=== PATIENT | male | born 1955 | race Two or more races ===

== ENCOUNTER 2016-06-05 23:38 | Inpatient (IN) | payer BC ==
[~2016-06-05] VITALS: Ht 177.8 cm; Wt 127.0 kg
[~2016-06-05 23:38] MED LIST: CARV12.5 PO; FURO40TA5 PO; METF500T4 PO; METH5TAB6 PO; URSO300C12 PO
[2016-06-05] MEDS ORDERED: NITROGLYCERIN 0.4 MG/TAB BOTTLE ONE (23:57)
[2016-06-05] MEDS ORDERED: ASPIRIN 81 MG TAB.CHEW ONE (23:58)
[2016-06-06] MEDS ORDERED: NITROGLYCERIN 0.4 MG/TAB BOTTLE SL ONE
[2016-06-06] MEDS ORDERED: ASPIRIN 81 MG TAB.CHEW PO ONE
[2016-06-06 00:11] LABS: INR 1.13 (0.87-1.13); PROTHROMBIN TIME 11.9 SECS (9.5-12.7)
[2016-06-06 00:21] LABS: ANION GAP 15 (5-14); CALCIUM, SERUM 9.1 mg/dL (8.5-10.1); CARBON DIOXIDE 29 mmol/L (21-32); CHLORIDE 100 mmol/L (98-107); CREATININE 1.1 mg/dL (0.6-1.3); GFR 68 mL/min (>60); GLUCOSE 112 mg/dL (74-106); POTASSIUM 4.4 mmol/L (3.5-5.1); SODIUM SERUM 140 mmol/L (136-145); UREA NITROGEN, BLOOD 17 mg/dL (7-18)
[2016-06-06 00:30] LABS: TROPONIN I < 0.017 ng/mL (0.00-0.056)
[2016-06-06] MEDS ORDERED: HYDROMORPHONE 1 MG/1 ML DISP.SYRIN ONE ×4 (00:39→03:55)
[2016-06-06] MEDS ORDERED: ONDANSETRON HCL/PF 4 MG/2 ML VIAL ONE (00:40)
[2016-06-06 00:41] LABS: BASOPHILS # (AUTO) 0.1 /CMM (0.0-0.2); BASOPHILS % (AUTO) 0.4 % (0.0-2.0); DIFF TOTAL % 100 %; EOSINOPHILS # (AUTO) 0.2 /CMM (0.0-0.7); EOSINOPHILS % (AUTO) 1.6 % (0.0-6.0); HEMATOCRIT 42 % (39-51); HEMOGLOBIN 13.6 g/dL (13.5-17.5); LYMPHOCYTES # (AUTO) 1.9 /CMM (0.8-4.8); LYMPHOCYTES % (AUTO) 14.2 % (20.0-44.0); MEAN CORPUSCULAR HEMOGLOBIN 30 PG (26.0-33.0); MEAN CORPUSCULAR HGB CONC 32 g/dl (31.0-36.0); MEAN CORPUSCULAR VOLUME 94 fL (80-96); MONOCYTES # (AUTO) 1.5 /CMM (0.1-1.30); MONOCYTES % (AUTO) 10.9 % (2.0-12.0); NEUTROPHILS # (AUTO) 9.9 /CMM (1.8-8.9); NEUTROPHILS % (AUTO) 72.9 % (43.0-81.0); PLATELET COUNT (AUTO) 250 /CMM (150-450); RED BLOOD CELL COUNT(AUTO) 4.53 MIL/uL (4.5-6.0); WHITE BLOOD COUNT (AUTO) 13.5 K/uL (4.3-11.0)
[2016-06-06] MEDS ORDERED: ONDANSETRON HCL/PF 4 MG/2 ML VIAL IV ONE (01:00)
[2016-06-06] MEDS ORDERED: HYDROMORPHONE 1 MG/1 ML DISP.SYRIN IV ONE ×4 (01:00→05:30)
[2016-06-06] MEDS ORDERED: CT SWABBABLE VALVE TRANS SET 1 EA INFUS.SET MC ONE (01:16)
[2016-06-06] MEDS ORDERED: IOHEXOL-350 100 ML VIAL IV ONE (01:16)
[2016-06-06] MEDS ORDERED: IV NS 0.9% 250 ML IV ONE (01:16)
[2016-06-06] MEDS ORDERED: SULFAMETH/TRIMETH 800/160 MG 1 UDTAB TABLET PO ONE ×2 (02:49→03:00)
[2016-06-06] MEDS ORDERED: CEFAZOLIN 1 GM ONE (02:49)
[2016-06-06] MEDS ORDERED: IV D5W 50 ML IV ONE (02:49)
[2016-06-06] MEDS ORDERED: IV SET PRIMARY PUMP SET 1 EA INFUS.SET MC ONE ×2 (02:50→05:39)
[2016-06-06] MEDS ORDERED: CEFAZOLIN 1 GM in IV D5W 50 ML IV ONE (03:00)
[2016-06-06] MEDS ORDERED: HYDROMORPHONE INJ 2 MG/ML DISP.SYRIN ONE (03:56)
[2016-06-06] MEDS ORDERED: IV NS 0.9% 1,000 ML IV PRN ×2 (04:15→04:25)
[2016-06-06] MEDS ORDERED: MAGNESIUM HYDROXIDE 30 ML UDC PO PRN (04:30)
[2016-06-06] MEDS ORDERED: HYDROCODONE/APAP 5/325MG 1 EACH TABLET PO PRN (04:30)
[2016-06-06] MEDS ORDERED: ONDANSETRON HCL/PF 4 MG/2 ML VIAL IVP PRN (04:30)
[2016-06-06] MEDS ORDERED: ACETAMINOPHEN 325 MG TABLET PO PRN (04:30)
[2016-06-06] MEDS ORDERED: Z GUARD REMEDY 2 OZ OINT TP PRN (04:30)
[2016-06-06] MEDS ORDERED: MAG HYDROX/AL HYDROX/SIMETH 30 ML UDC PO PRN (04:30)
[2016-06-06] MEDS ORDERED: IV NS 0.9% 1,000 ML ONE (05:38)
[2016-06-06] MEDS: URSODIOL 300 MG CAPSULE PO SCH ×5 (07:00→21:33)
[2016-06-06 07:14] LABS: BASOPHILS # (AUTO) 0.1 /CMM (0.0-0.2); DIFF TOTAL % 100 %; EOSINOPHILS # (AUTO) 0.3 /CMM (0.0-0.7); HEMATOCRIT 41 % (39-51); HEMOGLOBIN 13.5 g/dL (13.5-17.5); LYMPHOCYTES % (AUTO) 14.9 % (20.0-44.0); MEAN CORPUSCULAR HEMOGLOBIN 30 PG (26.0-33.0); MEAN CORPUSCULAR HGB CONC 33 g/dl (31.0-36.0); MEAN CORPUSCULAR VOLUME 91 fL (80-96); MONOCYTES # (AUTO) 1.6 /CMM (0.1-1.30); MONOCYTES % (AUTO) 12.5 % (2.0-12.0); NEUTROPHILS # (AUTO) 9.2 /CMM (1.8-8.9); NEUTROPHILS % (AUTO) 69.6 % (43.0-81.0); PLATELET COUNT (AUTO) 232 /CMM (150-450); RED BLOOD CELL COUNT(AUTO) 4.44 MIL/uL (4.5-6.0); WHITE BLOOD COUNT (AUTO) 13.2 K/uL (4.3-11.0)
[2016-06-06 07:20] LABS: TROPONIN I < 0.017 ng/mL (0.00-0.056)
[2016-06-06 07:47] LABS: ANION GAP 15 (5-14); CALCIUM, SERUM 8.7 mg/dL (8.5-10.1); CARBON DIOXIDE 27 mmol/L (21-32); CHLORIDE 101 mmol/L (98-107); CREATININE 0.9 mg/dL (0.6-1.3); GFR 86 mL/min (>60); GLUCOSE 103 mg/dL (74-106); SODIUM SERUM 138 mmol/L (136-145); UREA NITROGEN, BLOOD 14 mg/dL (7-18)
[2016-06-06 07:48] LABS: ALANINE AMINOTRANSFERASE 14 U/L (12-78); ALBUMIN 2.9 g/dL (3.4-5.0); ASPARTATE AMINOTRANSFERASE 15 U/L (15-37); BILIRUBIN,TOTAL 0.4 mg/dL (0.2-1.0); PHOSPHORUS 3.6 mg/dL (2.5-4.9); TOTAL PROTEIN, SERUM 8.1 g/dL (6.4-8.2)
[2016-06-06 08:00] VITALS: BP 163/88
[2016-06-06 08:02] LABS: CHOLESTEROL 169 mg/dL (<200); HDL CHOLESTEROL 61 mg/dL (40-60); LDL 91 mg/dL (0-99); TRIGLYCERIDES 51 mg/dL (30-150)
[2016-06-06] MEDS: METFORMIN 500 MG TABLET PO SCH ×2 (09:00→17:00)
[2016-06-06 09:21] LABS: THYROID STIMULATING HORMONE 1.995 uIU/mL (0.358-3.74)
[2016-06-06] MEDS ORDERED: HYDROMORPHONE INJ 2 MG/ML DISP.SYRIN IV ONE (09:30)
[2016-06-06] MEDS: METHIMAZOLE (5MG) 5 MG TABLET PO SCH (09:32)
[2016-06-06] MEDS: CARVEDILOL 12.5 MG TABLET PO SCH ×2 (09:32→17:01)
[2016-06-06] MEDS ORDERED: DEXTROSE 50%-WATER 50 ML DISP.SYRIN IV PRN (10:00)
[2016-06-06] MEDS: BLOOD SUGAR DIAGNOSTIC 1 EACH STRIP IN SCH ×4 (10:00→21:33)
[2016-06-06] MEDS: VANCOMYCIN 1.25 GM in IV D5W 500 ML IV SCH ×2 (10:09→21:26)
[2016-06-06] MEDS ORDERED: SECONDARY IV SET 1 EA INFUS.SET MC ONE (10:11)
[2016-06-06] MEDS: PREGABALIN 25 MG CAPSULE PO SCH ×3 (10:11→16:56)
[2016-06-06] MEDS: IV D5/ 0.9% NACL 1,000 ML IV PRN (10:15)
[2016-06-06 10:34] LABS: CALCIUM, SERUM 8.5 mg/dL (8.5-10.1)
[2016-06-06 10:40] LABS: ALBUMIN 2.6 g/dL (3.4-5.0); BILIRUBIN,DIRECT 0.1 mg/dL (0.0-0.2); BILIRUBIN,TOTAL 0.4 mg/dL (0.2-1.0); INDIRECT BILIRUBIN 0.3 mg/dL (0.0-1.1); TOTAL PROTEIN, SERUM 7.7 g/dL (6.4-8.2)
[2016-06-06 10:45] LABS: LACTIC ACID 0.7 mmol/L (0.4-2.0)
[2016-06-06 11:05] LABS: ADD UA MICROSCOPIC YES; KETONES,URINE TRACE (NEGATIVE); LEUKOCYTE ESTERASE ,URINE NEGATIVE (NEGATIVE); PH,URINE 5.5 (5.0-8.0)
[2016-06-06 11:10] LABS: ADD URINE CULTURE NO; MUCUS,URINE Few /LPF (None Seen); RBC,URINE 0-2 /HPF (0-2)
[2016-06-06 12:00] VITALS: BP 95/65
[2016-06-06] MEDS: Folic acid 1 MG in IV D5W 50 ML IV SCH (12:15)
[2016-06-06] MEDS: PIPERACILLIN /TAZOBACTAM 3.375 G in IV D5W 50 ML IV SCH ×2 (12:55→18:58)
[2016-06-06] MEDS: diphenhydrAMINE HCL 25 MG CAPSULE PO PRN (12:55)
[2016-06-06] MEDS: HYDROMORPHONE INJ 2 MG/ML DISP.SYRIN IV PRN ×3 (13:24→21:27)
[2016-06-06] MEDS: Thiamine 100 MG in IV D5W 50 ML IV SCH (14:21)
[2016-06-06] MEDS: Magnesium 1GM/D5W 100ML PREMIX 100 ML IV SCH ×2 (15:20→16:56)
[2016-06-06 16:00] VITALS: BP 120/69
[2016-06-06] MEDS ORDERED: FEE PK DOSING 1 MIN EA MC ONE (16:33)
[2016-06-06 20:00] VITALS: BP 133/63
[2016-06-06 20:12] VITALS: BP 133/63
[2016-06-06] MEDS: INSULIN REGULAR, HUMAN 100 UNIT/ML 3 ML VIAL SQ PRN (21:51)
[2016-06-07] MEDS: PIPERACILLIN /TAZOBACTAM 3.375 G in IV D5W 50 ML IV SCH ×4 (00:21→17:01)
[2016-06-07] MEDS: HYDROMORPHONE INJ 2 MG/ML DISP.SYRIN IV PRN ×6 (01:26→22:21)
[2016-06-07] MEDS: BLOOD SUGAR DIAGNOSTIC 1 EACH STRIP IN SCH ×4 (06:33→22:21)
[2016-06-07] MEDS: URSODIOL 300 MG CAPSULE PO SCH ×5 (06:33→20:32)
[2016-06-07] MEDS: diphenhydrAMINE HCL 25 MG CAPSULE PO PRN ×2 (06:36→18:25)
[2016-06-07] MEDS: IV D5/ 0.9% NACL 1,000 ML IV PRN ×2 (06:40→17:00)
[2016-06-07 06:53] LABS: BASOPHILS # (AUTO) 0.1 /CMM (0.0-0.2); BASOPHILS % (AUTO) 0.4 % (0.0-2.0); DIFF TOTAL % 100 %; EOSINOPHILS # (AUTO) 0.5 /CMM (0.0-0.7); EOSINOPHILS % (AUTO) 3.3 % (0.0-6.0); HEMATOCRIT 39 % (39-51); HEMOGLOBIN 12.5 g/dL (13.5-17.5); LYMPHOCYTES # (AUTO) 0.6 /CMM (0.8-4.8); LYMPHOCYTES % (AUTO) 3.7 % (20.0-44.0); MEAN CORPUSCULAR HEMOGLOBIN 30 PG (26.0-33.0); MEAN CORPUSCULAR HGB CONC 32 g/dl (31.0-36.0); MEAN CORPUSCULAR VOLUME 94 fL (80-96); MONOCYTES # (AUTO) 0.9 /CMM (0.1-1.30); MONOCYTES % (AUTO) 5.9 % (2.0-12.0); NEUTROPHILS # (AUTO) 13.7 /CMM (1.8-8.9); NEUTROPHILS % (AUTO) 86.7 % (43.0-81.0); PLATELET COUNT (AUTO) 222 /CMM (150-450); RED BLOOD CELL COUNT(AUTO) 4.12 MIL/uL (4.5-6.0); WHITE BLOOD COUNT (AUTO) 15.8 K/uL (4.3-11.0)
[2016-06-07 07:16] LABS: CALCIUM, SERUM 8.5 mg/dL (8.5-10.1); CREATININE 1.4 mg/dL (0.6-1.3); PHOSPHORUS 4.2 mg/dL (2.5-4.9); POTASSIUM 4.4 mmol/L (3.5-5.1)
[2016-06-07 08:00] VITALS: BP 119/65
[2016-06-07] MEDS: METFORMIN 500 MG TABLET PO SCH ×3 (08:20→17:00)
[2016-06-07] MEDS: METHIMAZOLE (5MG) 5 MG TABLET PO SCH (08:23)
[2016-06-07] MEDS: VANCOMYCIN 1.25 GM in IV D5W 500 ML IV SCH (08:23)
[2016-06-07] MEDS: CARVEDILOL 12.5 MG TABLET PO SCH ×3 (08:23→17:29)
[2016-06-07] MEDS: PREGABALIN 25 MG CAPSULE PO SCH ×4 (08:23→17:29)
[2016-06-07 08:35] VITALS: BP 119/65
[2016-06-07] MEDS: Folic acid 1 MG in IV D5W 50 ML IV SCH (10:32)
[2016-06-07] MEDS ORDERED: SECONDARY IV SET 1 EA INFUS.SET MC ONE (10:46)
[2016-06-07 11:33] LABS: KETONES,URINE NEGATIVE (NEGATIVE); LEUKOCYTE ESTERASE ,URINE NEGATIVE (NEGATIVE); PH,URINE 5.5 (5.0-8.0)
[2016-06-07 11:35] LABS: ADD UA MICROSCOPIC YES
[2016-06-07 11:41] LABS: ADD URINE CULTURE NO; COARSE GRANULAR CASTS,URINE Few /LPF (None Seen); MUCUS,URINE Few /LPF (None Seen); WBC,URINE 0-2 /HPF (0-3)
[2016-06-07] MEDS: Thiamine 100 MG in IV D5W 50 ML IV SCH (11:53)
[2016-06-07] MEDS ORDERED: LIDOCAINE 1% INJ 50 ML MDV IJ ONE (12:30)
[2016-06-07 16:00] VITALS: BP_SYST 111; BP_SYST 117; BP_DIAS 56
[2016-06-07 20:00] VITALS: BP_SYST 92; BP_DIAS 57; BP_DIAS 60
[2016-06-07] MEDS: INSULIN REGULAR, HUMAN 100 UNIT/ML 3 ML VIAL SQ PRN (22:22)
[2016-06-08] MEDS: VANCOMYCIN 1.25 GM in IV D5W 500 ML IV SCH ×2 (02:05→21:11)
[2016-06-08] MEDS ORDERED: SECONDARY IV SET 1 EA INFUS.SET MC ONE ×2 (02:07→10:17)
[2016-06-08] MEDS: HYDROMORPHONE INJ 2 MG/ML DISP.SYRIN IV PRN ×4 (02:39→14:45)
[2016-06-08] MEDS: BLOOD SUGAR DIAGNOSTIC 1 EACH STRIP IN SCH ×4 (05:16→21:24)
[2016-06-08] MEDS: INSULIN REGULAR, HUMAN 100 UNIT/ML 3 ML VIAL SQ PRN (05:17)
[2016-06-08] MEDS: PIPERACILLIN /TAZOBACTAM 3.375 G in IV D5W 50 ML IV SCH ×5 (05:18→17:41)
[2016-06-08 06:38] LABS: BASOPHILS # (AUTO) 0.1 /CMM (0.0-0.2); BASOPHILS % (AUTO) 0.8 % (0.0-2.0); DIFF TOTAL % 100 %; EOSINOPHILS % (AUTO) 7.9 % (0.0-6.0); HEMATOCRIT 39 % (39-51); HEMOGLOBIN 12.5 g/dL (13.5-17.5); LYMPHOCYTES # (AUTO) 0.7 /CMM (0.8-4.8); LYMPHOCYTES % (AUTO) 5.6 % (20.0-44.0); MEAN CORPUSCULAR HEMOGLOBIN 30 PG (26.0-33.0); MEAN CORPUSCULAR HGB CONC 32 g/dl (31.0-36.0); MEAN CORPUSCULAR VOLUME 94 fL (80-96); MONOCYTES # (AUTO) 0.8 /CMM (0.1-1.30); MONOCYTES % (AUTO) 6.9 % (2.0-12.0); NEUTROPHILS # (AUTO) 9.6 /CMM (1.8-8.9); NEUTROPHILS % (AUTO) 78.8 % (43.0-81.0); PLATELET COUNT (AUTO) 231 /CMM (150-450); RED BLOOD CELL COUNT(AUTO) 4.15 MIL/uL (4.5-6.0); WHITE BLOOD COUNT (AUTO) 12.2 K/uL (4.3-11.0)
[2016-06-08] MEDS: URSODIOL 300 MG CAPSULE PO SCH ×5 (07:00→21:11)
[2016-06-08 07:09] LABS: CALCIUM, SERUM 8.7 mg/dL (8.5-10.1); CREATININE 1.5 mg/dL (0.6-1.3); PHOSPHORUS 2.9 mg/dL (2.5-4.9); POTASSIUM 4.2 mmol/L (3.5-5.1)
[2016-06-08 08:00] VITALS: BP 113/73
[2016-06-08] MEDS: ALBUTEROL FS 2.5 MG/0.5 ML VIAL.NEB NEB PRN (08:12)
[2016-06-08] MEDS: IPRATROPIUM NEB FS 0.5 MG/2.5 ML AMPUL.NEB NEB PRN (08:12)
[2016-06-08] MEDS: CARVEDILOL 12.5 MG TABLET PO SCH ×3 (08:36→17:40)
[2016-06-08] MEDS: METHIMAZOLE (5MG) 5 MG TABLET PO SCH (08:37)
[2016-06-08] MEDS: PREGABALIN 25 MG CAPSULE PO SCH ×4 (08:37→17:40)
[2016-06-08] MEDS: METFORMIN 500 MG TABLET PO SCH (08:37)
[2016-06-08] MEDS: Folic acid 1 MG in IV D5W 50 ML IV SCH (10:15)
[2016-06-08] MEDS: Thiamine 100 MG in IV D5W 50 ML IV SCH (10:46)
[2016-06-08] MEDS ORDERED: NEOMY SULF/BACITRAC ZN/POLY 15 GM TUBE TP PRN (14:30)
[2016-06-08] MEDS ORDERED: diphenhydrAMINE HCL 50 MG/ML VIAL IV ONE (14:30)
[2016-06-08] MEDS ORDERED: FENTANYL PF 100MCG/2ML AMPUL ONE (15:53)
[2016-06-08] MEDS ORDERED: MIDAZOLAM HCL 2 MG/2ML VIAL ONE (15:53)
[2016-06-08 16:00] VITALS: BP 100/60
[2016-06-08] MEDS ORDERED: BACITRACIN 50000 UNITS/VIAL ONE (16:04)
[2016-06-08 17:20] VITALS: BP 99/59
[2016-06-08 18:00] VITALS: BP 100/60
[2016-06-08 20:00] VITALS: BP 83/41
[2016-06-08 20:13] VITALS: BP 83/46
[2016-06-08] MEDS ORDERED: IV NS 0.9% 1,000 ML ONE (21:10)
[2016-06-08] MEDS: INSULIN DETEMIR 100 UNIT/ML CARTRIDGE SQ SCH (21:25)
[2016-06-08] MEDS ORDERED: IV NS 0.9% 500 ML BAG IV ONE (22:30)
[2016-06-09] VITALS: BP 108/64
[2016-06-09] MEDS: PIPERACILLIN /TAZOBACTAM 3.375 G in IV D5W 50 ML IV SCH ×5 (00:23→23:42)
[2016-06-09] MEDS: HYDROMORPHONE INJ 2 MG/ML DISP.SYRIN IV PRN ×3 (01:11→10:14)
[2016-06-09 05:45] VITALS: BP 118/72
[2016-06-09] MEDS: URSODIOL 300 MG CAPSULE PO SCH ×5 (06:05→21:33)
[2016-06-09] MEDS: BLOOD SUGAR DIAGNOSTIC 1 EACH STRIP IN SCH ×4 (06:41→21:46)
[2016-06-09 07:49] LABS: CALCIUM, SERUM 8.4 mg/dL (8.5-10.1); POTASSIUM 4.6 mmol/L (3.5-5.1)
[2016-06-09 08:00] VITALS: BP 109/61
[2016-06-09] MEDS: METHIMAZOLE (5MG) 5 MG TABLET PO SCH (08:41)
[2016-06-09] MEDS: PREGABALIN 25 MG CAPSULE PO SCH ×3 (08:41→16:42)
[2016-06-09] MEDS: CARVEDILOL 12.5 MG TABLET PO SCH ×2 (08:42→16:42)
[2016-06-09] MEDS: THIAMINE HCL 100 MG TABLET PO SCH (09:15)
[2016-06-09] MEDS: FOLIC ACID 1 MG TABLET PO SCH (09:16)
[2016-06-09] MEDS ORDERED: IV NS 0.9% 1,000 ML BAG IV PRN (12:00)
[2016-06-09] MEDS: IPRATROPIUM NEB FS 0.5 MG/2.5 ML AMPUL.NEB NEB PRN (12:22)
[2016-06-09] MEDS: ALBUTEROL FS 2.5 MG/0.5 ML VIAL.NEB NEB PRN (12:22)
[2016-06-09] MEDS ORDERED: IV SET PRIMARY PUMP SET 1 EA INFUS.SET MC ONE (14:17)
[2016-06-09 16:00] VITALS: BP 96/59
[2016-06-09] MEDS ORDERED: HYDROCODONE/APAP 5/325MG 1 EACH TABLET PO PRN (16:00)
[2016-06-09] MEDS ORDERED: HYDROCODONE/APAP 10/325MG 1 EA TABLET PO PRN (16:00)
[2016-06-09] MEDS: LACTOBACILLUS RHAMNOSUS GG 1 EACH CAP.SPRINK PO SCH (16:42)
[2016-06-09] MEDS: TAMSULOSIN 0.4 MG CAP.SR.24H PO SCH (16:42)
[2016-06-09] MEDS ORDERED: SECONDARY IV SET 1 EA INFUS.SET MC ONE ×2 (17:13→20:50)
[2016-06-09] MEDS: IV NS 0.9% 1,000 ML IV PRN (18:48)
[2016-06-09 20:00] VITALS: BP 107/60
[2016-06-09] MEDS: VANCOMYCIN 1.25 GM in IV D5W 500 ML IV SCH (20:53)
[2016-06-09] MEDS: INSULIN REGULAR, HUMAN 100 UNIT/ML 3 ML VIAL SQ PRN (21:53)
[2016-06-09] MEDS: INSULIN DETEMIR 100 UNIT/ML CARTRIDGE SQ SCH (22:00)
[2016-06-10] MEDS: PIPERACILLIN /TAZOBACTAM 3.375 G in IV D5W 50 ML IV SCH ×2 (06:10→12:04)
[2016-06-10] MEDS: BLOOD SUGAR DIAGNOSTIC 1 EACH STRIP IN SCH ×4 (06:18→22:02)
[2016-06-10] MEDS: URSODIOL 300 MG CAPSULE PO SCH ×5 (07:00→21:00)
[2016-06-10 07:50] LABS: CALCIUM, SERUM 8.5 mg/dL (8.5-10.1); POTASSIUM 4.2 mmol/L (3.5-5.1)
[2016-06-10 08:00] VITALS: BP 151/86
[2016-06-10] MEDS: CARVEDILOL 12.5 MG TABLET PO SCH ×2 (08:07→17:00)
[2016-06-10] MEDS: FOLIC ACID 1 MG TABLET PO SCH (08:13)
[2016-06-10] MEDS: PREGABALIN 25 MG CAPSULE PO SCH ×3 (08:13→17:00)
[2016-06-10] MEDS: LACTOBACILLUS RHAMNOSUS GG 1 EACH CAP.SPRINK PO SCH ×2 (08:13→17:00)
[2016-06-10] MEDS: THIAMINE HCL 100 MG TABLET PO SCH (08:13)
[2016-06-10] MEDS: METHIMAZOLE (5MG) 5 MG TABLET PO SCH (08:13)
[2016-06-10] MEDS: TAMSULOSIN 0.4 MG CAP.SR.24H PO SCH (08:13)
[2016-06-10] MEDS: IV NS 0.9% 1,000 ML IV PRN (08:20)
[2016-06-10] MEDS ORDERED: CEFTRIAXONE 1 G in IV D5W 50 ML IV SCH (13:00)
[2016-06-10] MEDS: CEFTRIAXONE 2 G in IV D5W 100 ML IV SCH (14:59)
[2016-06-10 16:00] VITALS: BP 119/77
[2016-06-10] MEDS: IPRATROPIUM NEB FS 0.5 MG/2.5 ML AMPUL.NEB NEB PRN (19:12)
[2016-06-10 20:00] VITALS: BP 141/72
[2016-06-10 21:07] LABS: BASOPHILS # (AUTO) 0.1 /CMM (0.0-0.2); BASOPHILS % (AUTO) 1.1 % (0.0-2.0); DIFF TOTAL % 100 %; EOSINOPHILS # (AUTO) 0.7 /CMM (0.0-0.7); EOSINOPHILS % (AUTO) 7.6 % (0.0-6.0); HEMATOCRIT 33 % (39-51); HEMOGLOBIN 10.5 g/dL (13.5-17.5); LYMPHOCYTES # (AUTO) 1.1 /CMM (0.8-4.8); LYMPHOCYTES % (AUTO) 11.7 % (20.0-44.0); MEAN CORPUSCULAR HEMOGLOBIN 30 PG (26.0-33.0); MEAN CORPUSCULAR HGB CONC 32 g/dl (31.0-36.0); MEAN CORPUSCULAR VOLUME 94 fL (80-96); MONOCYTES # (AUTO) 1.1 /CMM (0.1-1.30); MONOCYTES % (AUTO) 11.3 % (2.0-12.0); NEUTROPHILS # (AUTO) 6.4 /CMM (1.8-8.9); NEUTROPHILS % (AUTO) 68.3 % (43.0-81.0); PLATELET COUNT (AUTO) 262 /CMM (150-450); RED BLOOD CELL COUNT(AUTO) 3.53 MIL/uL (4.5-6.0); WHITE BLOOD COUNT (AUTO) 9.4 K/uL (4.3-11.0)
[2016-06-10] MEDS ORDERED: FUROSEMIDE 40 MG/4 ML VIAL IV ONE (21:30)
[2016-06-10] MEDS ORDERED: FUROSEMIDE 40 MG/4 ML VIAL ONE (21:44)
[2016-06-10 22:05] LABS: ABG BASE EXCESS -0.9 mmol/L; ABG HCO3 25.9 mmol/L; ABG PCO2 52.3 mmHg (35.0-45.0); ABG PH 7.312 (7.350-7.450); ABG PO2 69.5 mmHg (75.0-100.0); ABG TOTAL HEMOGLOBIN 11.9 G/dL (13.5-18.0); ALLEN TEST Pass; O2Hb 92.4 % (94.0-97.0)
[2016-06-10] MEDS: VANCOMYCIN 1.25 GM in IV D5W 500 ML IV SCH (22:16)
[2016-06-11] MEDS: BLOOD SUGAR DIAGNOSTIC 1 EACH STRIP IN SCH ×4 (06:34→22:28)
[2016-06-11] MEDS: IV NS 0.9% 1,000 ML IV PRN (06:46)
[2016-06-11] MEDS: URSODIOL 300 MG CAPSULE PO SCH ×5 (07:00→21:00)
[2016-06-11 07:04] LABS: BASOPHILS # (AUTO) 0.1 /CMM (0.0-0.2); BASOPHILS % (AUTO) 0.8 % (0.0-2.0); DIFF TOTAL % 100 %; EOSINOPHILS # (AUTO) 0.7 /CMM (0.0-0.7); EOSINOPHILS % (AUTO) 7.5 % (0.0-6.0); HEMATOCRIT 37 % (39-51); HEMOGLOBIN 11.8 g/dL (13.5-17.5); LYMPHOCYTES # (AUTO) 0.9 /CMM (0.8-4.8); LYMPHOCYTES % (AUTO) 9.2 % (20.0-44.0); MEAN CORPUSCULAR HEMOGLOBIN 30 PG (26.0-33.0); MEAN CORPUSCULAR HGB CONC 32 g/dl (31.0-36.0); MEAN CORPUSCULAR VOLUME 93 fL (80-96); MONOCYTES # (AUTO) 0.9 /CMM (0.1-1.30); MONOCYTES % (AUTO) 9.4 % (2.0-12.0); NEUTROPHILS # (AUTO) 7.3 /CMM (1.8-8.9); NEUTROPHILS % (AUTO) 73.1 % (43.0-81.0); PLATELET COUNT (AUTO) 289 /CMM (150-450); RED BLOOD CELL COUNT(AUTO) 3.98 MIL/uL (4.5-6.0); WHITE BLOOD COUNT (AUTO) 9.9 K/uL (4.3-11.0)
[2016-06-11 07:35] LABS: BILIRUBIN,TOTAL 0.3 mg/dL (0.2-1.0); CALCIUM, SERUM 8.8 mg/dL (8.5-10.1); CREATININE 1.7 mg/dL (0.6-1.3); PHOSPHORUS 3.2 mg/dL (2.5-4.9); TOTAL PROTEIN, SERUM 7.4 g/dL (6.4-8.2)
[2016-06-11 08:00] VITALS: BP 130/69
[2016-06-11] MEDS: PREGABALIN 25 MG CAPSULE PO SCH ×3 (09:00→17:00)
[2016-06-11] MEDS: LACTOBACILLUS RHAMNOSUS GG 1 EACH CAP.SPRINK PO SCH ×2 (09:18→17:09)
[2016-06-11] MEDS: TAMSULOSIN 0.4 MG CAP.SR.24H PO SCH (09:21)
[2016-06-11] MEDS: CARVEDILOL 12.5 MG TABLET PO SCH ×2 (09:22→17:09)
[2016-06-11] MEDS: FOLIC ACID 1 MG TABLET PO SCH (09:22)
[2016-06-11] MEDS: THIAMINE HCL 100 MG TABLET PO SCH (09:22)
[2016-06-11] MEDS: METHIMAZOLE (5MG) 5 MG TABLET PO SCH (09:22)
[2016-06-11] MEDS: INSULIN REGULAR, HUMAN 100 UNIT/ML 3 ML VIAL SQ PRN ×3 (12:00→22:28)
[2016-06-11] MEDS: CEFTRIAXONE 2 G in IV D5W 100 ML IV SCH (14:26)
[2016-06-11 16:00] VITALS: BP_SYST 110; BP_SYST 141; BP_DIAS 63; BP_DIAS 77
[2016-06-11] MEDS: FUROSEMIDE 20 MG/2 ML VIAL IV SCH (18:43)
[2016-06-11 20:00] VITALS: BP 145/77
[2016-06-11] MEDS: VANCOMYCIN 1.25 GM in IV D5W 500 ML IV SCH (21:01)
[2016-06-11 21:38] LABS: KETONES,URINE NEGATIVE (NEGATIVE); LEUKOCYTE ESTERASE ,URINE NEGATIVE (NEGATIVE); PH,URINE 5.5 (5.0-8.0)
[2016-06-11 21:45] LABS: CREATININE, URINE 120.6 MG/DL (30.0-125.0); URINE TOTAL PROTEIN 89.7 mg/dL (0-11.9)
[2016-06-11 21:47] LABS: ADD UA MICROSCOPIC YES
[2016-06-11 21:54] LABS: ADD URINE CULTURE NO; WBC,URINE 0-2 /HPF (0-3)
[2016-06-11] MEDS: INSULIN DETEMIR 100 UNIT/ML CARTRIDGE SQ SCH (22:00)
[2016-06-12] MEDS: HYDROMORPHONE INJ 2 MG/ML DISP.SYRIN IV PRN ×4 (04:15→20:49)
[2016-06-12] MEDS: BLOOD SUGAR DIAGNOSTIC 1 EACH STRIP IN SCH ×4 (06:43→22:00)
[2016-06-12] MEDS: URSODIOL 300 MG CAPSULE PO SCH ×5 (06:44→21:00)
[2016-06-12 07:28] LABS: CALCIUM, SERUM 8.8 mg/dL (8.5-10.1); CREATININE 1.4 mg/dL (0.6-1.3); POTASSIUM 3.9 mmol/L (3.5-5.1)
[2016-06-12 08:00] VITALS: BP 139/78
[2016-06-12] MEDS: PREGABALIN 25 MG CAPSULE PO SCH ×3 (09:00→17:00)
[2016-06-12] MEDS: LACTOBACILLUS RHAMNOSUS GG 1 EACH CAP.SPRINK PO SCH ×2 (09:10→17:03)
[2016-06-12] MEDS: METHIMAZOLE (5MG) 5 MG TABLET PO SCH (09:11)
[2016-06-12] MEDS: CARVEDILOL 12.5 MG TABLET PO SCH ×2 (09:11→17:04)
[2016-06-12] MEDS: TAMSULOSIN 0.4 MG CAP.SR.24H PO SCH (09:11)
[2016-06-12] MEDS: FOLIC ACID 1 MG TABLET PO SCH (09:11)
[2016-06-12] MEDS: FUROSEMIDE 20 MG/2 ML VIAL IV SCH (09:12)
[2016-06-12] MEDS: THIAMINE HCL 100 MG TABLET PO SCH (09:32)
[2016-06-12 11:49] LABS: PTH, INTACT 20 pg/mL (15-65)
[2016-06-12] MEDS: INSULIN REGULAR, HUMAN 100 UNIT/ML 3 ML VIAL SQ PRN ×2 (11:58→17:04)
[2016-06-12] MEDS: CEFTRIAXONE 2 G in IV D5W 100 ML IV SCH (14:31)
[2016-06-12 16:00] VITALS: BP 144/76
[2016-06-12 20:00] VITALS: BP 125/68
[2016-06-12] MEDS: VANCOMYCIN 1.25 GM in IV D5W 500 ML IV SCH (21:00)
[2016-06-13] MEDS: diphenhydrAMINE HCL 25 MG CAPSULE PO PRN ×3 (02:36→18:32)
[2016-06-13] MEDS: HYDROMORPHONE INJ 2 MG/ML DISP.SYRIN IV PRN ×4 (02:54→18:35)
[2016-06-13] MEDS: INSULIN DETEMIR 100 UNIT/ML CARTRIDGE SQ SCH ×2 (03:10→21:16)
[2016-06-13] MEDS: URSODIOL 300 MG CAPSULE PO SCH ×6 (07:00→21:08)
[2016-06-13 07:37] LABS: BASOPHILS # (AUTO) 0.1 /CMM (0.0-0.2); BASOPHILS % (AUTO) 1.1 % (0.0-2.0); DIFF TOTAL % 100 %; EOSINOPHILS % (AUTO) 8.6 % (0.0-6.0); HEMATOCRIT 35 % (39-51); HEMOGLOBIN 11.4 g/dL (13.5-17.5); LYMPHOCYTES # (AUTO) 2.2 /CMM (0.8-4.8); LYMPHOCYTES % (AUTO) 20.1 % (20.0-44.0); MEAN CORPUSCULAR HEMOGLOBIN 30 PG (26.0-33.0); MEAN CORPUSCULAR HGB CONC 32 g/dl (31.0-36.0); MEAN CORPUSCULAR VOLUME 92 fL (80-96); MONOCYTES # (AUTO) 1.3 /CMM (0.1-1.30); MONOCYTES % (AUTO) 11.6 % (2.0-12.0); NEUTROPHILS # (AUTO) 6.5 /CMM (1.8-8.9); NEUTROPHILS % (AUTO) 58.6 % (43.0-81.0); PLATELET COUNT (AUTO) 333 /CMM (150-450); RED BLOOD CELL COUNT(AUTO) 3.83 MIL/uL (4.5-6.0); WHITE BLOOD COUNT (AUTO) 11.1 K/uL (4.3-11.0)
[2016-06-13 08:00] VITALS: BP 156/82
[2016-06-13 08:11] LABS: CALCIUM, SERUM 8.8 mg/dL (8.5-10.1); CREATININE 1.4 mg/dL (0.6-1.3); PHOSPHORUS 4.4 mg/dL (2.5-4.9); POTASSIUM 3.9 mmol/L (3.5-5.1)
[2016-06-13] MEDS: BLOOD SUGAR DIAGNOSTIC 1 EACH STRIP IN SCH ×4 (09:49→21:09)
[2016-06-13] MEDS: FOLIC ACID 1 MG TABLET PO SCH (09:49)
[2016-06-13] MEDS: PREGABALIN 25 MG CAPSULE PO SCH ×3 (09:49→17:11)
[2016-06-13] MEDS: THIAMINE HCL 100 MG TABLET PO SCH (09:49)
[2016-06-13] MEDS: METHIMAZOLE (5MG) 5 MG TABLET PO SCH (09:49)
[2016-06-13] MEDS: LACTOBACILLUS RHAMNOSUS GG 1 EACH CAP.SPRINK PO SCH ×2 (09:49→17:11)
[2016-06-13] MEDS: TAMSULOSIN 0.4 MG CAP.SR.24H PO SCH (09:49)
[2016-06-13] MEDS: FUROSEMIDE 20 MG/2 ML VIAL IV SCH (09:49)
[2016-06-13] MEDS: CARVEDILOL 12.5 MG TABLET PO SCH ×2 (09:50→17:12)
[2016-06-13] MEDS ORDERED: SECONDARY IV SET 1 EA INFUS.SET MC ONE (12:13)
[2016-06-13] MEDS: Magnesium 1GM/D5W 100ML PREMIX 100 ML IV SCH ×2 (12:19→13:22)
[2016-06-13] MEDS: COLCHICINE 0.6 MG TABLET PO SCH (12:19)
[2016-06-13] MEDS: CEFTRIAXONE 2 G in IV D5W 100 ML IV SCH (14:50)
[2016-06-13 16:00] VITALS: BP 141/80
[2016-06-13 20:00] VITALS: BP 112/58
[2016-06-13 20:18] VITALS: BP 112/58
[2016-06-13] MEDS: VANCOMYCIN 1 GM in IV D5W 250 ML IV SCH (21:08)
[2016-06-13] MEDS: INSULIN REGULAR, HUMAN 100 UNIT/ML 3 ML VIAL SQ PRN (21:14)
[2016-06-14] MEDS ORDERED: HYDROMORPHONE 1 MG/1 ML DISP.SYRIN ONE ×2 (00:01→04:53)
[2016-06-14] MEDS: HYDROMORPHONE 1 MG/1 ML DISP.SYRIN IV PRN ×5 (00:06→20:55)
[2016-06-14] MEDS: diphenhydrAMINE HCL 25 MG CAPSULE PO PRN (05:36)
[2016-06-14] MEDS: BLOOD SUGAR DIAGNOSTIC 1 EACH STRIP IN SCH ×4 (06:32→21:53)
[2016-06-14] MEDS: INSULIN REGULAR, HUMAN 100 UNIT/ML 3 ML VIAL SQ PRN (06:34)
[2016-06-14 08:00] VITALS: BP 145/75
[2016-06-14 08:36] LABS: BASOPHILS # (AUTO) 0.1 /CMM (0.0-0.2); BASOPHILS % (AUTO) 0.7 % (0.0-2.0); DIFF TOTAL % 100 %; EOSINOPHILS # (AUTO) 0.5 /CMM (0.0-0.7); EOSINOPHILS % (AUTO) 4.4 % (0.0-6.0); HEMATOCRIT 37 % (39-51); HEMOGLOBIN 11.8 g/dL (13.5-17.5); LYMPHOCYTES # (AUTO) 1.4 /CMM (0.8-4.8); LYMPHOCYTES % (AUTO) 12.3 % (20.0-44.0); MEAN CORPUSCULAR HEMOGLOBIN 30 PG (26.0-33.0); MEAN CORPUSCULAR HGB CONC 32 g/dl (31.0-36.0); MEAN CORPUSCULAR VOLUME 93 fL (80-96); MONOCYTES # (AUTO) 0.6 /CMM (0.1-1.30); MONOCYTES % (AUTO) 5.3 % (2.0-12.0); NEUTROPHILS # (AUTO) 8.7 /CMM (1.8-8.9); NEUTROPHILS % (AUTO) 77.3 % (43.0-81.0); PLATELET COUNT (AUTO) 316 /CMM (150-450); RED BLOOD CELL COUNT(AUTO) 3.93 MIL/uL (4.5-6.0); WHITE BLOOD COUNT (AUTO) 11.2 K/uL (4.3-11.0)
[2016-06-14 08:44] LABS: CALCIUM, SERUM 8.9 mg/dL (8.5-10.1); CREATININE 1.4 mg/dL (0.6-1.3); PHOSPHORUS 4.4 mg/dL (2.5-4.9); POTASSIUM 4.5 mmol/L (3.5-5.1)
[2016-06-14] MEDS: COLCHICINE 0.6 MG TABLET PO SCH (08:56)
[2016-06-14] MEDS: TAMSULOSIN 0.4 MG CAP.SR.24H PO SCH (08:56)
[2016-06-14] MEDS: METHIMAZOLE (5MG) 5 MG TABLET PO SCH (08:56)
[2016-06-14] MEDS: PREGABALIN 25 MG CAPSULE PO SCH ×3 (08:56→16:38)
[2016-06-14] MEDS: LACTOBACILLUS RHAMNOSUS GG 1 EACH CAP.SPRINK PO SCH ×2 (08:56→16:38)
[2016-06-14] MEDS: FOLIC ACID 1 MG TABLET PO SCH (08:56)
[2016-06-14] MEDS: FUROSEMIDE 20 MG/2 ML VIAL IV SCH (08:56)
[2016-06-14] MEDS: THIAMINE HCL 100 MG TABLET PO SCH (08:56)
[2016-06-14] MEDS: URSODIOL 300 MG CAPSULE PO SCH ×5 (08:56→21:53)
[2016-06-14] MEDS: CARVEDILOL 12.5 MG TABLET PO SCH ×2 (08:58→16:38)
[2016-06-14] MEDS: CEFTRIAXONE 2 G in IV D5W 100 ML IV SCH (14:21)
[2016-06-14 16:00] VITALS: BP 154/88
[2016-06-14 18:00] VITALS: BP 154/88
[2016-06-14 20:00] VITALS: BP 121/67
[2016-06-14] MEDS: VANCOMYCIN 1 GM in IV D5W 250 ML IV SCH (21:53)
[2016-06-14] MEDS: INSULIN DETEMIR 100 UNIT/ML CARTRIDGE SQ SCH (22:00)
[2016-06-15] MEDS: HYDROMORPHONE 1 MG/1 ML DISP.SYRIN IV PRN ×3 (03:25→15:00)
[2016-06-15] MEDS: URSODIOL 300 MG CAPSULE PO SCH ×4 (06:14→17:33)
[2016-06-15] MEDS: BLOOD SUGAR DIAGNOSTIC 1 EACH STRIP IN SCH ×3 (07:30→17:38)
[2016-06-15 08:00] VITALS: BP 133/74
[2016-06-15 08:01] LABS: BASOPHILS # (AUTO) 0.1 /CMM (0.0-0.2); BASOPHILS % (AUTO) 0.8 % (0.0-2.0); DIFF TOTAL % 100 %; EOSINOPHILS # (AUTO) 0.5 /CMM (0.0-0.7); EOSINOPHILS % (AUTO) 5.2 % (0.0-6.0); HEMATOCRIT 37 % (39-51); HEMOGLOBIN 11.9 g/dL (13.5-17.5); LYMPHOCYTES # (AUTO) 1.5 /CMM (0.8-4.8); LYMPHOCYTES % (AUTO) 17.2 % (20.0-44.0); MEAN CORPUSCULAR HEMOGLOBIN 30 PG (26.0-33.0); MEAN CORPUSCULAR HGB CONC 32 g/dl (31.0-36.0); MEAN CORPUSCULAR VOLUME 93 fL (80-96); MONOCYTES # (AUTO) 0.5 /CMM (0.1-1.30); MONOCYTES % (AUTO) 5.4 % (2.0-12.0); NEUTROPHILS # (AUTO) 6.3 /CMM (1.8-8.9); NEUTROPHILS % (AUTO) 71.4 % (43.0-81.0); PLATELET COUNT (AUTO) 350 /CMM (150-450); RED BLOOD CELL COUNT(AUTO) 3.96 MIL/uL (4.5-6.0); WHITE BLOOD COUNT (AUTO) 8.9 K/uL (4.3-11.0)
[2016-06-15 08:20] LABS: CALCIUM, SERUM 8.8 mg/dL (8.5-10.1); CREATININE 1.4 mg/dL (0.6-1.3); POTASSIUM 4.5 mmol/L (3.5-5.1)
[2016-06-15] MEDS: TAMSULOSIN 0.4 MG CAP.SR.24H PO SCH (08:27)
[2016-06-15] MEDS: LACTOBACILLUS RHAMNOSUS GG 1 EACH CAP.SPRINK PO SCH ×2 (08:27→17:33)
[2016-06-15] MEDS: METHIMAZOLE (5MG) 5 MG TABLET PO SCH (08:27)
[2016-06-15] MEDS: FOLIC ACID 1 MG TABLET PO SCH (08:27)
[2016-06-15] MEDS: THIAMINE HCL 100 MG TABLET PO SCH (08:27)
[2016-06-15] MEDS: CARVEDILOL 12.5 MG TABLET PO SCH ×2 (08:27→17:38)
[2016-06-15] MEDS: COLCHICINE 0.6 MG TABLET PO SCH (08:27)
[2016-06-15] MEDS: PREGABALIN 25 MG CAPSULE PO SCH ×3 (08:27→17:33)
[2016-06-15] MEDS: FUROSEMIDE 20 MG/2 ML VIAL IV SCH (08:27)
[2016-06-15 08:30] LABS: ERYTHROCYTE SEDIMENTATION RATE 80 MM/HR (0-20)
[2016-06-15 11:12] VITALS: BP 133/74
[2016-06-15 13:30] LABS: *SPE ALBUMIN 2.4 g/dL (2.9-4.4)
[2016-06-15] MEDS: CEFTRIAXONE 2 G in IV D5W 100 ML IV SCH (14:56)
[2016-06-15 16:00] VITALS: BP 139/78
[2016-06-15 16:21] VITALS: BP 139/78
[2016-06-15 17:38] VITALS: BP 139/78
== END 2016-06-15 18:36 | disposition home health service (06) | DRG 871 ==
LOC: ER 23:40 → TELE 06-06 04:29 → MED 06-06 18:46
PROVIDERS: ADMIT Internal Medicine; ATTEND Internal Medicine
PROC: 3E1U38Z Irrigation of Joints using Irrigating Substance, Percutaneous Approach (ICD-10-PCS; 2016-06-08)
PROC: 0S9D4ZZ Drainage of Left Knee Joint, Percutaneous Endoscopic Approach (ICD-10-PCS; principal; 2016-06-08 16:00)
PROC: 02HV33Z Insertion of Infusion Device into Superior Vena Cava, Percutaneous Approach (ICD-10-PCS; 2016-06-10)
PROC: B548ZZA Ultrasonography of Superior Vena Cava, Guidance (ICD-10-PCS; 2016-06-10)
DX: A41.9 Sepsis, unspecified organism (principal); E43 Unspecified severe protein-calorie malnutrition; I50.43 Acute on chronic combined systolic (congestive) and diastolic (congestive) heart failure; N17.0 Acute kidney failure with tubular necrosis; M00.9 Pyogenic arthritis, unspecified; J96.12 Chronic respiratory failure with hypercapnia; J96.11 Chronic respiratory failure with hypoxia; E46 Unspecified protein-calorie malnutrition; E87.1 Hypo-osmolality and hyponatremia; I13.0 Hypertensive heart and chronic kidney disease with heart failure and stage 1 through stage 4 chronic kidney disease, or unspecified chronic kidney disease; Z68.41 Body mass index [BMI] 40.0-44.9, adult; L03.116 Cellulitis of left lower limb; N39.0 Urinary tract infection, site not specified; J90 Pleural effusion, not elsewhere classified; E66.2 Morbid (severe) obesity with alveolar hypoventilation; M10.9 Gout, unspecified; R07.9 Chest pain, unspecified; I87.2 Venous insufficiency (chronic) (peripheral); D64.9 Anemia, unspecified; E03.9 Hypothyroidism, unspecified; E11.65 Type 2 diabetes mellitus with hyperglycemia; E78.5 Hyperlipidemia, unspecified; F10.20 Alcohol dependence, uncomplicated; F17.200 Nicotine dependence, unspecified, uncomplicated; G62.9 Polyneuropathy, unspecified; I25.10 Atherosclerotic heart disease of native coronary artery without angina pectoris; I35.0 Nonrheumatic aortic (valve) stenosis; J44.9 Chronic obstructive pulmonary disease, unspecified; N18.9 Chronic kidney disease, unspecified; R33.9 Retention of urine, unspecified; T50.8X5A Adverse effect of diagnostic agents, initial encounter; Z90.49 Acquired absence of other specified parts of digestive tract; Z90.81 Acquired absence of spleen; E11.22 Type 2 diabetes mellitus with diabetic chronic kidney disease; M25.462 Effusion, left knee; R65.20 Severe sepsis without septic shock
CPT/HCPCS: 36415; 36600; 71010-TC; 73564-TC; 76700-TC; 80048-TC; 80053-TC; 80061-TC; 80076-TC; 80202-TC; 81000-TC; 82550-TC; 82570-TC; 82803-TC; 82962-TC; 83605-TC; 83690-TC; 83735-TC; 83880; 83970; 84100-TC; 84155; 84155-TC; 84165; 84300-TC; 84443-TC; 84484-TC; 84550-TC; 85025-TC; 85378-TC; 85652-TC; 85730-TC; 86140-TC; 87040-TC; 87070-TC; 87075-TC; 87081-TC; 87086-TC; 89060-TC; 93925-TC; 93970-TC; 94799-TC; 97001-TC; 97003-TC; 97110-TC; 97112-TC; 97116-TC; 97530-TC; 97535-TC; A4217; A4606; A6253; A6402; A6403; C1751; J0690; J0696; J1170; J1200; J1815; J1885; J1940; J2250; J2370; J2405; J2543; J2704; J3010; J3370; J3411; J3475; J3490; J7030; J7040; J7042; J7050; J7060; Q0163; Q9967; Z7610

== ENCOUNTER 2018-02-21 02:22 | Inpatient (IN) | payer MEDICARE, OTHER ==
[~2018-02-21] VITALS: Ht 177.8 cm; Wt 140.6 kg
[~2018-02-21 02:22] MED LIST changes: -METF500T4 PO; +METF500T6 PO
[2018-02-21] MEDS ORDERED: ONDANSETRON HCL/PF 4 MG/2 ML VIAL IVP ONE ×2 (02:30→05:00)
[2018-02-21] MEDS ORDERED: IV NS 0.9% 1,000 ML BAG IV ONE (02:30)
[2018-02-21] MEDS ORDERED: PANTOPRAZOLE 40 MG VIAL IV ONE (02:30)
--- NOTE | 2018-02-21 02:30 | NUR ---
BIB RA COMPLAINING OF ABDOMINAL PAIN SINCE "LAST NIGHT". N/V NOTED. PT AA/O X 4 APPEARS ANXIOUS. APPEARS SOB. DIFFICULTY IN COMPLETING SENTENCES DUE TO DYSPNEA. O2 SAT 90% ROOM AIR. PLACED ON 3LPM VIA NC. SKIN PINK, WARM, DRY. PAIN IN ABDOMEN IS NON RADIATING, SHARP PAIN, 10/10 PAIN. ABDOMINAL SOUNDS ACTIVE. PEDAL PULSES EQUAL AND PRESENT. MOVES ALL EXTREMITIES WELL. ALL OTHER VSS. MD AT BEDSIDE.
[2018-02-21] MEDS ORDERED: ONDANSETRON HCL/PF 4 MG/2 ML VIAL ONE ×2 (02:46→04:58)
[2018-02-21] MEDS ORDERED: PANTOPRAZOLE 40 MG VIAL ONE (02:46)
[2018-02-21] MEDS ORDERED: MORPHINE SULFATE INJ 4 MG/ML DISP.SYRIN ONE (02:46)
[2018-02-21 02:58] LABS: BASOPHILS % (AUTO) 0.3 % (0.0-2.0); EOSINOPHILS % (AUTO) 2.6 % (0.0-6.0); HEMATOCRIT 49 % (39-51); HEMOGLOBIN 15.2 g/dL (13.5-17.5); LYMPHOCYTES # (AUTO) 1.7 /CMM (0.8-4.8); LYMPHOCYTES % (AUTO) 21.5 % (20.0-44.0); MEAN CORPUSCULAR HEMOGLOBIN 31 PG (26.0-33.0); MEAN CORPUSCULAR HGB CONC 31 g/dl (31.0-36.0); MEAN CORPUSCULAR VOLUME 100 fL (80-96); MONOCYTES # (AUTO) 0.4 /CMM (0.1-1.30); MONOCYTES % (AUTO) 5.6 % (2.0-12.0); NEUTROPHILS # (AUTO) 5.6 /CMM (1.8-8.9); PLATELET COUNT (AUTO) 233 /CMM (150-450); RDW COEFFICIENT OF VARIATION 13.6 (11.5-15.0); RED BLOOD CELL COUNT(AUTO) 4.88 MIL/uL (4.5-6.0)
--- NOTE | 2018-02-21 02:58 | NUR ---
BROUGHT TO CT.
[2018-02-21] MEDS ORDERED: IV NS 0.9% 500 ML BAG IV ONE (03:00)
[2018-02-21] MEDS ORDERED: MORPHINE SULFATE INJ 2 MG/ML DISP.SYRIN IV ONE (03:00)
[2018-02-21 03:09] LABS: CALCIUM, SERUM 9.4 mg/dL (8.5-10.1); CARBON DIOXIDE 29 mmol/L (21-32); CHLORIDE 100 mmol/L (98-107); CREATININE 1.3 mg/dL (0.6-1.3); GLUCOSE 136 mg/dL (74-106); POTASSIUM 4.7 mmol/L (3.5-5.1); SODIUM SERUM 139 mmol/L (136-145); UREA NITROGEN, BLOOD 27 mg/dL (7-18)
[2018-02-21 03:11] LABS: INR 1.02 (0.87-1.13)
[2018-02-21 03:14] LABS: ALANINE AMINOTRANSFERASE 18 U/L (12-78); ALKALINE PHOSPHATASE 67 U/L (46-116); ASPARTATE AMINOTRANSFERASE 18 U/L (15-37); BILIRUBIN,DIRECT 0.1 mg/dL (0.0-0.2); BILIRUBIN,TOTAL 0.3 mg/dL (0.2-1.0); TOTAL PROTEIN, SERUM 8.5 g/dL (6.4-8.2)
[2018-02-21 03:16] LABS: TROPONIN I < 0.017 ng/mL (0.00-0.056)
[2018-02-21 03:22] LABS: LIPASE < 10 U/L (73-393)
[2018-02-21 03:24] LABS: ALBUMIN < 0.6 g/dL (3.4-5.0)
--- NOTE | 2018-02-21 03:38 | NUR ---
RESTING IN BED COMFORTABLY WITH FAMILY AT BEDSIDE. VSS. NAD. SAFETY MEASURES IN PLACE. CALL LIGHT WITHIN REACH. WILL CONTINUE TO MONITOR.
[2018-02-21 03:42] LABS: APPEARANCE,URINE CLEAR (CLEAR); BILIRUBIN,URINE NEGATIVE (NEGATIVE); BLOOD, URINE TRACE-INTA Ery/uL (NEGATIVE); COLOR,URINE YELLOW (YELLOW); KETONES,URINE NEGATIVE (NEGATIVE); LEUKOCYTE ESTERASE ,URINE NEGATIVE (NEGATIVE); NITRITE, URINE NEGATIVE (NEGATIVE); PH,URINE 5.5 (5.0-8.0); PROTEIN,URINE 3+ mg/dl (NEGATIVE); UGLUCOSE NEGATIVE (NEGATIVE); UROBILINOGEN,URINE 0.2 EU/dL (0.2)
[2018-02-21 03:51] LABS: BACTERIA,URINE Few /HPF (None Seen); SQUAMOUS EPITHELIAL CELL,UR Rare /HPF (None Seen)
[2018-02-21] MEDS ORDERED: HYDROMORPHONE 1 MG/1 ML DISP.SYRIN ONE (04:58)
[2018-02-21] MEDS ORDERED: HYDROMORPHONE INJ 2 MG/ML DISP.SYRIN IV ONE (05:00)
--- NOTE | 2018-02-21 05:00 | NUR ---
PT MOVED TO BED 09
--- NOTE | 2018-02-21 05:23 | NUR ---
REPORT GIVEN TO CRUSHER AND BINDER OPERATOR [facility] BED 312-1
[2018-02-21] MEDS ORDERED: MORPHINE SULFATE INJ 2 MG/ML DISP.SYRIN IV PRN (05:30)
[2018-02-21 05:35] VITALS: BP 132/73
--- NOTE | 2018-02-21 05:35 | NUR ---
ANCILLARY SERVICES MANAGER THERAPY NEW ADMISSION OPENING NOTES RECEIVED PATIENT FROM ER VIA RNEY TO ROOM 312-1, ACCOMPANIED BY STAFF. A & O X4, NO SOB, NO ACUTE DISTRESS NOTED AT THIS TIME. OBESE. NPO. MILD C/O PAIN VERBALIZED @ THIS TIME. MORPHINE WAS GIVEN IN THE ER. RESP EVEN & NON LABORED. VSS. ABD SOFT, NON TENDER. NO N/V NOTED @ THIS TIME. BODY CHECK DONE, PHOTOS TAKEN, PLACED IN THE CHART. IV ACCESS TO RIGHT HAND, G 18, INTACT PATENT,SL. BELONGING LIST REVIEWED & SIGNED BY TAG STRINGER. ALL ORDERS VERIFIED WITH MD, READ BACK DONE & ORDERS NOTED & CARRIED OUT. ON O2 @ 3LMP VIA NC SATTING 94%. SAFETY MEASURES IN PLACE. BED IN LOW LOCKED POSITION. CALL LIGHT WITHIN REACH. WILL CONTINUE TO MONITOR FOR LINDSEY.
--- NOTE | 2018-02-21 05:39 | NUR ---
PT TRANSPORTED TO TELE UNIT WITH STABLE CONDITION. VSS. NAD. VIA ACLS PROTOCOL
[2018-02-21] MEDS: IV NS 0.9% 1,000 ML IV PRN ×2 (06:05→23:34)
--- NOTE | 2018-02-21 06:15 | NUR ---
NGT INSERTED PLACED AN ORDER TO PLACE AN NGT, PT IS NPO. NGT INSERTED, VERIFIED THE PLACEMENT. CXR ORDERED FOR CONFIRMATION. PROCEDURE TOLERATED WELL. WILL MONITOR CLOSELY.
[2018-02-21] MEDS ORDERED: MORPHINE SULFATE INJ 4 MG/ML DISP.SYRIN IV PRN (07:00)
--- NOTE | 2018-02-21 07:15 | NUR ---
ANIMAL SHELTER SUPERVISOR CLOSING NOTES PT IS RESTING IN BED. HAD C/O ABDOMINAL PAIN 01/20, PRN MORPHINE GIVEN ORDERED. WILL REASSESS FOR EFFECTIVENESS. IVF RUNNING ORDERED. IN SEMI SEGURA POSITION. ON O2 @ 3 LPM SATTING 95%. NGT NOTED WITH GASTRIC CONTENTS. ENDORSED TO AM RN TO FOLLOW WITH MD FOR NGT INSTRUCTIONS. BED IN LOW LOCKED POSITION. CALL LIGHT WITHIN REACH. WILL CONTINUE TO MONITOR.
[2018-02-21] MEDS ORDERED: CARV25TA2 PO (07:17)
[2018-02-21] MEDS ORDERED: PITA4TAB PO (07:17)
--- NOTE | 2018-02-21 07:30 | NUR ---
RN MS NOTES PT IN BED, AWAKE, ALERT AND ORIENTED, STILL WITH COMPLAINT OF ABDOMINAL PAIN, FOX RAISER NURSE ADMINISTERED PAIN MEDICATION, WILL REASSESS NEEDED, NGT IN PLACE, CALL LIGHT WITHIN REACH, NEEDS ATTENDED.
[2018-02-21 07:40] LABS: MAGNESIUM 1.8 mg/dL (1.8-2.4); PHOSPHORUS 4.7 mg/dL (2.5-4.9)
[2018-02-21 08:07] VITALS: BP 126/71
[2018-02-21] MEDS: PANTOPRAZOLE 40 MG VIAL IV SCH (08:59)
[2018-02-21] MEDS: HYDROMORPHONE INJ 2 MG/ML DISP.SYRIN IV PRN ×5 (10:13→23:30)
[2018-02-21] MEDS ORDERED: DIATR MEGLU/DIATRIZOATE SODIUM 120 ML BOTTLE (GASTROGRAPHIN) ONE (10:53)
--- NOTE | 2018-02-21 11:33 | NUR ---
RN MS NOTES PT AT X-RAY ROOM FOR SMALL BOWEL THROUGH, PT SEEN BY DR. FRANKS, PAIN MEDS GIVEN FOR PAIN MANAGEMENT, NO COMPLAINT OF NAUSEA, NGT IN PLACE, CONFIRMED BY CXR.
[2018-02-21] MEDS ORDERED: *INSULIN REGULAR(HUMULIN R)HUM 100 UNIT/ML VIAL SQ PRN (12:30)
[2018-02-21] MEDS ORDERED: INSULIN REGULAR, HUMAN 100 UNIT/ML 3 ML VIAL SQ PRN (12:30)
[2018-02-21] MEDS ORDERED: DEXTROSE 50%-WATER 50 ML DISP.SYRIN IV PRN (12:30)
[2018-02-21] MEDS: ONDANSETRON HCL/PF 4 MG/2 ML VIAL IVP PRN ×3 (12:59→23:26)
[2018-02-21] MEDS: BLOOD SUGAR DIAGNOSTIC 1 EACH STRIP VI SCH ×3 (13:04→21:26)
--- NOTE | 2018-02-21 13:12 | NUR ---
RN MS NOTES PT BACK FROM XR SMALL BOWEL, PT COMPLAINING OF 10/10 ABDOMINAL PAIN AND N/V, PER JANES BURROWS TO GIVE ANOTHER DOSE OF DILAUDID 2MG IV, MD MARRERO TO CHANGE PAIN MED TO EVERY 3 HOURS.
[2018-02-21 16:00] VITALS: BP 135/81
--- NOTE | 2018-02-21 18:55 | NUR ---
RN MS NOTES PT IN BED, RESTING, NOT IN DISTRESS, WITH COMPLAINT OF NAUSEA, ZOFRAN GIVEN ORDERED, VISITED BY ARIANA, PLAN OF CARE DISCUSSED WITH PT AND , VERBALIZED UNDERSTANDING, IV FLUIDS INFUSING WELL, ALL NEEDS ATTENDED.
--- NOTE | 2018-02-21 19:30 | NUR ---
MS MENDOZA INITIAL NOTES Received patient A/O X 4, with NGT R nares clamped. On NPO. With patent peripheral IV line with NS infusing well @ 75 ml/hr. With complaints of dry mouth at this time. Offered orange glycerin swab, administered by the daughter. Will continue to monitor accordingly.
[2018-02-21 19:59] VITALS: BP 144/78
[2018-02-21 20:00] VITALS: BP 144/78
[2018-02-22 06:20] LABS: CALCIUM, SERUM 8.6 mg/dL (8.5-10.1); POTASSIUM 4.7 mmol/L (3.5-5.1)
[2018-02-22 06:42] LABS: BASOPHILS % (AUTO) 0.4 % (0.0-2.0); EOSINOPHILS % (AUTO) 0.6 % (0.0-6.0); HEMATOCRIT 44 % (39-51); HEMOGLOBIN 14.1 g/dL (13.5-17.5); LYMPHOCYTES # (AUTO) 1.4 /CMM (0.8-4.8); LYMPHOCYTES % (AUTO) 15.6 % (20.0-44.0); MEAN CORPUSCULAR HEMOGLOBIN 32 PG (26.0-33.0); MEAN CORPUSCULAR HGB CONC 32 g/dl (31.0-36.0); MEAN CORPUSCULAR VOLUME 100 fL (80-96); MONOCYTES # (AUTO) 0.9 /CMM (0.1-1.30); MONOCYTES % (AUTO) 10.6 % (2.0-12.0); NEUTROPHILS # (AUTO) 6.4 /CMM (1.8-8.9); NEUTROPHILS % (AUTO) 72.8 % (43.0-81.0); PLATELET COUNT (AUTO) 210 /CMM (150-450); RED BLOOD CELL COUNT(AUTO) 4.43 MIL/uL (4.5-6.0); WHITE BLOOD COUNT (AUTO) 8.8 K/uL (4.3-11.0)
[2018-02-22] MEDS: HYDROMORPHONE INJ 2 MG/ML DISP.SYRIN IV PRN ×6 (06:43→23:36)
--- NOTE | 2018-02-22 07:08 | NUR ---
MS RN CLOSING NOTES Patient awake on Fowlers position on bed with patent peripheral IV line R hand G#18 with ND infusing well @ 75ml/hr. Still on NPO, with NGT on R nares. Medicated for pain, noted to be effective. Claimed patient noted passing flatus. Able to ambulate self to toilet with standby assistance. Last bowel movement at 6AM, large, loose, dark brown, watery with solid pieces, no unusual odor. Kept on bed comfortable, all needs attended. Afebrile the whole shift. No new complaints made. Endorsed to the next shift.
--- NOTE | 2018-02-22 07:30 | NUR ---
RN MS NOTES PT IN BED, AWAKE, ALERT AND ORIENTED, RESPIRATIONS NORMAL AND NOT LABORED, STILL WITH COMPLAINT OF SLIGHT ABDOMINAL PAIN, PT STATES THAT HER PAIN IS IMPROVED TODAY THAN YESTERDAY AND FELT BETTER AFTER HE HAD A BOWEL MOVEMENT, IV FLUIDS INFUSING WELL, PT SEEN BY DR. FRANKS, PLAN OF CARE DISCUSSED BY MD WITH PT, VERBALIZED UNDERSTANDING, CALL LIGHT WITHIN REACH.
[2018-02-22] MEDS: BLOOD SUGAR DIAGNOSTIC 1 EACH STRIP VI SCH ×4 (09:38→21:56)
[2018-02-22] MEDS: PANTOPRAZOLE 40 MG VIAL IV SCH (09:38)
[2018-02-22 09:51] VITALS: BP 134/64
[2018-02-22] MEDS: IV NS 0.9% 1,000 ML IV PRN (17:45)
--- NOTE | 2018-02-22 19:30 | NUR ---
RN MS NOTES PT IN BED, NO COMPLAINT OF PAIN AT THIS TIME, NOT IN DISTRESS, CALL LIGHT WITHIN REACH, PT SEEN BY DR. SANCHEZ, PLAN OF CARE DISCUSSED WITH PT AND AT BEDSIDE, ORDERED TO REMOVE NGT, START ON CLEAR LIQUID DIET, ADVANCE TOLERATED, AM LABS.
--- NOTE | 2018-02-22 19:42 | NUR ---
RN NOTE ; RECEIVED PT IN BED W/ FAMILY AT THE BED SIDE. PT BREATHING EVENLY. NO SOB. NAD. PT WAS SEEN AND EXAMINED BY DR. ANDRÉS Rossi VERBAL ORDER TO D/C TH E NGT AND START PT ON CLEAR LIQ. DIET. PT AND FAMILY MADE AWARE AND NGT WAS D/C'D. TOLERATED WELL. PT REPORTED NO N/V AT THIS TIME W/ MILD ABD DISCOMFORT. HAD A LOOSE BM IN AM. NEEDS ATTENDED , BED LOW LOCKED. CALL LIGHT WITHIN REACH. WILL CONT TO MONITOR ,
[2018-02-22 20:00] VITALS: BP 157/66
--- NOTE | 2018-02-22 21:56 | NUR ---
RN NOTES/ BLOOD SUGAR 2200 PT BLOOD SUGAR IS AT 95, NO COVERAGE GIVEN PER PROTOCOL. GIVEN APPLE JUICE WITH 1 SUGAR SINCE PT BLOOD SUGAR WAS TRENDING FROM 110-130s
[2018-02-23] MEDS: HYDROMORPHONE INJ 2 MG/ML DISP.SYRIN IV PRN ×3 (02:40→09:02)
--- NOTE | 2018-02-23 04:19 | NUR ---
NEW IV LINE 22G WAS INSERTED ON RFA W/ FIRST ATTEMPT AND GOOD BLOOD FLOW .
[2018-02-23 06:43] LABS: BASOPHILS % (AUTO) 0.3 % (0.0-2.0); EOSINOPHILS % (AUTO) 0.3 % (0.0-6.0); HEMATOCRIT 49 % (39-51); HEMOGLOBIN 15.1 g/dL (13.5-17.5); LYMPHOCYTES % (AUTO) 18.4 % (20.0-44.0); MEAN CORPUSCULAR HEMOGLOBIN 32 PG (26.0-33.0); MEAN CORPUSCULAR HGB CONC 31 g/dl (31.0-36.0); MEAN CORPUSCULAR VOLUME 102 fL (80-96); MONOCYTES # (AUTO) 0.5 /CMM (0.1-1.30); MONOCYTES % (AUTO) 4.8 % (2.0-12.0); NEUTROPHILS # (AUTO) 8.5 /CMM (1.8-8.9); NEUTROPHILS % (AUTO) 76.2 % (43.0-81.0); PLATELET COUNT (AUTO) 193 /CMM (150-450); RDW COEFFICIENT OF VARIATION 14.3 (11.5-15.0); RED BLOOD CELL COUNT(AUTO) 4.79 MIL/uL (4.5-6.0); WHITE BLOOD COUNT (AUTO) 11.1 K/uL (4.3-11.0)
[2018-02-23 06:56] LABS: ALBUMIN 3.3 g/dL (3.4-5.0); BILIRUBIN,TOTAL 0.5 mg/dL (0.2-1.0); CALCIUM, SERUM 8.7 mg/dL (8.5-10.1); CREATININE 1.3 mg/dL (0.6-1.3); PHOSPHORUS 3.5 mg/dL (2.5-4.9); POTASSIUM 4.7 mmol/L (3.5-5.1); TOTAL PROTEIN, SERUM 8.3 g/dL (6.4-8.2)
--- NOTE | 2018-02-23 07:05 | NUR ---
RN OPENING NOTES RECEIVED PT. IN BED AWAKE, A&OX4. BREATHING UNLABORED ON OXYGEN AT 3L/MIN VIA NASAL CANNULA. NO SOB. NO S/S OF ACUTE DISTRESS. IV ACCESS ON LEFT WRIST IS INTACT AND PATENT. BED IS IN LOWEST, AND LOCKED POSITION. 2 SIDE RAILS UP, AND INSTRUCTED PT. TO USE CALL LIGHT FOR ASSISTANCE. ALL NEEDS MET. WILL CONTINUE TO ASSESS AND MONITOR.
--- NOTE | 2018-02-23 07:29 | NUR ---
RN CLOSING NOTES PT SLEEPING IN BED, BREATHING EVENLY. PT IN O2 VIA NASAL CANNULA 2L, NO SOB. IV ACCESS ON THE RIGHT WRIST 22G PATENT AND INTACT. DENIES ANY PAIN AT THIS TIME. BILATERAL LOWER EXTREMITY DISCOLORATION AND ABDOMINAL SCAR, PICTURE IN THE CHART. SAFETY MEASURES IN PLACED, CALL LIGHT WITHIN REACH. ENDORSED CONTINUITY OF CARE TO THE ONCOMING RN
[2018-02-23] MEDS: PANTOPRAZOLE 40 MG VIAL IV SCH (07:30)
[2018-02-23 08:00] VITALS: BP 151/96
[2018-02-23] MEDS: BLOOD SUGAR DIAGNOSTIC 1 EACH STRIP VI SCH ×4 (08:13→20:47)
--- NOTE | 2018-02-23 08:14 | NUR ---
PT. WAS SEEN AND EXAMINED BY DR. FRANKS. DISCUSSED WITH MD PLAN TO ADVANCE DIET TOLERATED. CURRENTLY PT. IS TOLERATING CLEAR LIQUIDS. KUB, AND CXR WAS PERFORMED AT BEDSIDE THIS MORNING. MD WAS MADE AWARE OF RECONCILING PT.'S HOME MEDICATIONS.
[2018-02-23] MEDS: IV NS 0.9% 1,000 ML IV PRN (08:16)
--- NOTE | 2018-02-23 08:17 | NUR ---
PER OKAY TO DISCONTINUE IV FLUIDS.
[2018-02-23] MEDS ORDERED: FUROSEMIDE 40 MG TABLET PO PRN (09:00)
[2018-02-23] MEDS: CARVEDILOL 12.5 MG TABLET PO SCH ×2 (10:12→20:31)
[2018-02-23] MEDS: METHIMAZOLE (5MG) 5 MG TABLET PO SCH (10:13)
--- NOTE | 2018-02-23 12:15 | NUR ---
PT. TOLERATED FULL LIQUID DIET. PT. REPORTED HAS IS HAVING BURPING, AND DOES NOT HAVE AN APPETITE. PT. DENIES NAUSEA, AND ABDOMINAL PAIN.
[2018-02-23 16:00] VITALS: BP 136/82
--- NOTE | 2018-02-23 16:00 | NUR ---
RN NOTES AFTER PT. RECEIVED DILAUDID AT 0900. PT. HAD EPISODE OF CONFUSION, PT.'S WAS DESATURATING ON OXYGEN 2L/MIN, OXYGEN WAS INCREASED TO 3L/MIN TO MAINTAIN SP02 >92%. PT.'S HAD CALLED AND EXPRESSED THAT DILAUDID WAS MAKING HER BEHAVE IN A BAZAAR WAY AND THAT SHE WOULD LIKE THE MEDICATION DISCONTINUED. CONTACTED MD ABOUT PT.'S CONDITION, AND PT.'S SPOUSES REPORT. PER MD OKAY TO STOP DILAUDID AND INSTEAD ORDER FOR PAIN NORCO 5/325 MG PO q6H PRN, AND TYLENOL 650 MG PO Q6H PRN.
--- NOTE | 2018-02-23 17:32 | NUR ---
PT.'S BLOOD SUGAR IS 139 MG/DL PT. REFUSED REGULAR INSULIN.
[2018-02-23] MEDS: HYDROCODONE/APAP 5/325MG 1 EACH TABLET PO PRN (18:13)
--- NOTE | 2018-02-23 18:53 | NUR ---
RN CLOSING NOTES PT. IN BED AWAKE, A&OX4. PT.'S IS AT BEDSIDE. BREATHING IS UNLABORED, AND EVEN ON OXYGEN AT 2L/MIN VIA NASAL CANNULA. NO SOB. NO S/S OF ACUTE DISTRESS. IV ACCESS ON LEFT WRIST IS INTACT AND PATENT. BED IS IN LOWEST, AND LOCKED POSITION. 2 SIDE RAILS UP, AND INSTRUCTED PT. TO USE CALL LIGHT FOR ASSISTANCE. ALL NEEDS MET. WILL ENDORSE REPORT.
--- NOTE | 2018-02-23 19:00 | NUR ---
MS RN OPENING NOTES PT RECEIVED IN BED IN LOWEST AND LOCKED POSITION WITH SIDE RAILS UP X2, RESTING COMFORTABLY IN BED, A/O X3, NO S/S OF PAIN OR DISTRESS NOTED, BREATHING IS EVEN AND UNLABORED, ON 2L VIA NC, RIGHT WRIST 22G IS PATENT AND INTACT, SAFETY PRECAUTIONS IN PLACE, CALL LIGHT WITHIN REACH, WILL CONTINUE TO MONITOR AND ASSESS.
[2018-02-23 20:00] VITALS: BP 146/86
--- NOTE | 2018-02-23 20:48 | NUR ---
RN NOTES PT REQUESTED BLOOD SUGAR AT THIS TIME, IT WAS NOTED TO BE 114, NO COVERAGE NEEDED ACCORDING TO SLIDING SCALE
[2018-02-24] MEDS: ONDANSETRON HCL/PF 4 MG/2 ML VIAL IVP PRN ×2 (00:12→08:26)
[2018-02-24] MEDS: HYDROCODONE/APAP 5/325MG 1 EACH TABLET PO PRN (00:18)
--- NOTE | 2018-02-24 06:11 | NUR ---
MS RN OPENING NOTES PT IN BED IN LOWEST AND LOCKED POSITION WITH SIDE RAILS UP X2, RESTING COMFORTABLY IN BED, A/O X3, NO S/S OF PAIN OR DISTRESS NOTED, BREATHING IS EVEN AND UNLABORED, ON 2L VIA NC, RIGHT WRIST 22G IS PATENT AND INTACT, SAFETY PRECAUTIONS IN PLACE, ALL NEEDS ATTENDED, CALL LIGHT WITHIN REACH, WILL ENDORSE TO DAY SHIFT NURSE FOR CONTINUITY OF CARE
--- NOTE | 2018-02-24 07:30 | NUR ---
MS/RN OPENING NOTE PATIENT IS RECEIVED IN BED AND AWAKE. ALERT AND ORIENTED X4. PATIENT RECEIVED OXYGEN AT 2L/MIN VIA NASAL CANNULA AND DENIES SOB. DENIES PAIN. RIGHT WRITS G 22 PATENT AND SALINE LOCKED. BED LOW AND LOCKED. SIDE RAILS UP X3. CALL LIGHT WITHIN REACH. WILL CONTINUE TO MONITOR.
[2018-02-24 08:00] VITALS: BP 152/79
[2018-02-24] MEDS: ATORVASTATIN 10 MG TABLET PO SCH (08:24)
[2018-02-24] MEDS: METHIMAZOLE (5MG) 5 MG TABLET PO SCH (08:24)
[2018-02-24] MEDS: ACETAMINOPHEN 325 MG TABLET PO PRN (08:24)
[2018-02-24] MEDS: BLOOD SUGAR DIAGNOSTIC 1 EACH STRIP VI SCH ×4 (08:25→21:50)
[2018-02-24] MEDS: PANTOPRAZOLE 40 MG TABLET.DR PO SCH (08:25)
[2018-02-24] MEDS: CARVEDILOL 12.5 MG TABLET PO SCH ×2 (08:25→21:50)
[2018-02-24 09:30] LABS: BASOPHILS # (AUTO) 0.1 /CMM (0.0-0.2); BASOPHILS % (AUTO) 1.2 % (0.0-2.0); EOSINOPHILS % (AUTO) 1.6 % (0.0-6.0); HEMATOCRIT 47 % (39-51); HEMOGLOBIN 14.5 g/dL (13.5-17.5); LYMPHOCYTES # (AUTO) 1.3 /CMM (0.8-4.8); LYMPHOCYTES % (AUTO) 18.6 % (20.0-44.0); MEAN CORPUSCULAR HEMOGLOBIN 31 PG (26.0-33.0); MEAN CORPUSCULAR HGB CONC 31 g/dl (31.0-36.0); MEAN CORPUSCULAR VOLUME 99 fL (80-96); MONOCYTES # (AUTO) 0.6 /CMM (0.1-1.30); MONOCYTES % (AUTO) 8.8 % (2.0-12.0); NEUTROPHILS # (AUTO) 4.9 /CMM (1.8-8.9); NEUTROPHILS % (AUTO) 69.8 % (43.0-81.0); PLATELET COUNT (AUTO) 180 /CMM (150-450); RDW COEFFICIENT OF VARIATION 14.1 (11.5-15.0); RED BLOOD CELL COUNT(AUTO) 4.73 MIL/uL (4.5-6.0); WHITE BLOOD COUNT (AUTO) 7.1 K/uL (4.3-11.0)
[2018-02-24 10:43] LABS: CALCIUM, SERUM 8.6 mg/dL (8.5-10.1); CREATININE 1.2 mg/dL (0.6-1.3); PHOSPHORUS 2.1 mg/dL (2.5-4.9); POTASSIUM 4.6 mmol/L (3.5-5.1)
--- NOTE | 2018-02-24 10:52 | NUR ---
MS/RN NOTE PATIENT IS SEEN BY DR ANDRÉS JARVIS AND NEW ORDER OF CLEAR LIQUID DIET AND MOM BID PRN IS RECEIVED. THE ORDERS ARE READ BACK, VERIFIED. NOTED AND CARRIED OUT. THE PATIENT IS MADE AWARE.
--- NOTE | 2018-02-24 10:53 | NUR ---
MS/RN NOTE PER DR FRANKS THE PATIENT TO BE SEEN BY GREG STERN. KULDEEP STERN IS MADE AWARE.
[2018-02-24] MEDS ORDERED: MAGNESIUM HYDROXIDE 30 ML UDC PO PRN (11:00)
--- NOTE | 2018-02-24 11:15 | NUR ---
MS/RN NOTE GI KULDEEP STERN NOT WORKING TODAY, INSTEAD DR SANCHEZ IS MADE AWARE OF CONSULT PER DR FRANKS. ORDER CARRIED OUT. DR SANCHEZ IS MADE AWARE.
[2018-02-24 11:20] VITALS: BP 154/79
--- NOTE | 2018-02-24 12:07 | NUR ---
MS/RN NOTE BLOOD SUGAR 140. PATIENT REFUSED INSULIN DESPITE EXPLAINING RISKS AND BENEFITS.
[2018-02-24] MEDS ORDERED: K PHOS NEUTRAL 250 MG TABLET PO ONE (13:00)
[2018-02-24 16:00] VITALS: BP 141/82
--- NOTE | 2018-02-24 18:39 | NUR ---
MS/RN CLOSING NOTE PATIENT ALERT AND ORIENTED X4. DENIES SOB. DENIES PAIN. RESPIRATION REGULAR AND UNLABORED. RIGHT WRIST G 22 PATENT AND SALINE LOCKED. PATIENT IN NO APPARENT DISTRESS. PATIENT CONTINENT ON BOWEL AND BLADDER. PATIENT HAS STABLE GAIT. GOOD AND GENTLE SKIN CARE RENDERED. ALL NEEDS ATTENDED AND ANTICIPATED. BED LOW AND LOCKED. SIDE RAILS UP X3. CALL LIGHT WITHIN REACH. WILL ENDORSE TO ARMORED CAR GUARD AND DRIVER.
--- NOTE | 2018-02-24 19:25 | NUR ---
MS/RN NOTES RECEIVED PT. SITTING IN BED. PT. IS AWAKE, ALERT AND ORIENTED X4. BREATHING EVEN AND UNLABORED ON 2LPM O2 VIA NC. NO SOB, RESPIRATORY DISTRESS OR COMPLAINTS OF PAIN NOTED AT THIS TIME. PT. WITH RIGHT WRIST 22 GAUGE IV SALINE LOCK PRESENT, PATENT AND INTACT. PT. PRESENT AT BEDSIDE. PT. REMAINS ON CLEAR LIQUID DIET AT THIS TIME. BED LOCKED AND IN LOWEST POSITION, SIDE RAILS UP X2, CALL LIGHT WITHIN REACH, WILL CONTINUE TO MONITOR.
[2018-02-24 20:55] VITALS: BP 142/77
[2018-02-25] MEDS: ACETAMINOPHEN 325 MG TABLET PO PRN (05:46)
--- NOTE | 2018-02-25 06:21 | NUR ---
MS/RN NOTES PT. IS AWAKE, ALERT AND ORIENTED X4, SITTING IN CHAIR. BREATHING EVEN AND UNLABORED ON 2LPM O2 VIA NC. NO SOB, RESPIRATORY DISTRESS OR COMPLAINTS OF PAIN NOTED AT THIS TIME. PT. WITH RIGHT WRIST 22 GAUGE IV SALINE LOCK PRESENT, PATENT AND INTACT. PT. REMAINS ON CLEAR LIQUID DIET AT THIS TIME TOLERATING IT WELL. ALL PT. NEEDS MET. BED LOCKED AND IN LOWEST POSITION, SIDE RAILS UP X2, CALL LIGHT WITHIN REACH, WILL ENDORSE TO DAYSHIFT NURSE FOR CONTINUITY OF CARE.
[2018-02-25 06:36] LABS: CREATININE 0.9 mg/dL (0.6-1.3); MAGNESIUM 1.8 mg/dL (1.8-2.4); PHOSPHORUS 2.3 mg/dL (2.5-4.9); POTASSIUM 4.7 mmol/L (3.5-5.1)
[2018-02-25] MEDS: BLOOD SUGAR DIAGNOSTIC 1 EACH STRIP VI SCH ×2 (06:46→12:02)
--- NOTE | 2018-02-25 07:10 | NUR ---
ms rn initial notes Received patient in the hallway walking around the department. Patient is alert and oriented x 4, verbally responsive and able to make needs known. On 02 @ 2lpm via NC and tolerated well. IV intact and patent HL only. Patient verbalized that he want's real food, informed to call MD in a little bit. Call light with in patient reach, will continue to monitor accordingly.
[2018-02-25 08:00] VITALS: BP 139/91
[2018-02-25 08:21] LABS: BASOPHILS % (AUTO) 0.7 % (0.0-2.0); EOSINOPHILS % (AUTO) 3.2 % (0.0-6.0); HEMATOCRIT 47 % (39-51); HEMOGLOBIN 14.7 g/dL (13.5-17.5); LYMPHOCYTES # (AUTO) 1.5 /CMM (0.8-4.8); LYMPHOCYTES % (AUTO) 21.4 % (20.0-44.0); MEAN CORPUSCULAR HEMOGLOBIN 31 PG (26.0-33.0); MEAN CORPUSCULAR HGB CONC 31 g/dl (31.0-36.0); MEAN CORPUSCULAR VOLUME 100 fL (80-96); MONOCYTES # (AUTO) 0.6 /CMM (0.1-1.30); MONOCYTES % (AUTO) 8.5 % (2.0-12.0); NEUTROPHILS # (AUTO) 4.5 /CMM (1.8-8.9); NEUTROPHILS % (AUTO) 66.2 % (43.0-81.0); PLATELET COUNT (AUTO) 226 /CMM (150-450); RDW COEFFICIENT OF VARIATION 13.6 (11.5-15.0); RED BLOOD CELL COUNT(AUTO) 4.73 MIL/uL (4.5-6.0); WHITE BLOOD COUNT (AUTO) 6.8 K/uL (4.3-11.0)
[2018-02-25 09:00] VITALS: BP 139/91
[2018-02-25] MEDS: ATORVASTATIN 10 MG TABLET PO SCH (09:00)
[2018-02-25] MEDS: PANTOPRAZOLE 40 MG TABLET.DR PO SCH (09:00)
[2018-02-25] MEDS: METHIMAZOLE (5MG) 5 MG TABLET PO SCH (09:00)
[2018-02-25] MEDS: CARVEDILOL 12.5 MG TABLET PO SCH (09:00)
[2018-02-25] MEDS ORDERED: K PHOS NEUTRAL 250 MG TABLET PO ONE (10:30)
--- NOTE | 2018-02-25 12:03 | NUR ---
ms rn notes Blood sugar checked 162 patient refused coverage. Explained the risk and benefits x 3 and still refused. Patient is alert and oriented x 4. Will continue to monitor accordingly.
--- NOTE | 2018-02-25 14:50 | NUR ---
ms rn clinical appeals notes Discharge instructions given to patient and and able to understand instructions. Signed discharge paper and belonging list and no missing item noted. discontinued IV and pressured applied to prevent bleeding. Patient refused pictures, explained the benefits and still refused. PNA vaccine not given due to <65 years old, and flu vaccine is out of season. Patient left via ambulatory accompanied by in stable condition. No complaint of pain or discomfort, nor chest pain. Vital signs checked and recorded. MD and charge nurse made aware.
== END 2018-02-25 14:53 | disposition home or self-care (01) | DRG 388 ==
LOC: ER 02:24 → TELE 05:22 → MED 09:48
PROVIDERS: ADMIT Nurse Practitioner Acute Care; ATTEND Nurse Practitioner Acute Care
DX: K56.609 Unspecified intestinal obstruction, unspecified as to partial versus complete obstruction (principal); N17.0 Acute kidney failure with tubular necrosis; J96.21 Acute and chronic respiratory failure with hypoxia; Z68.41 Body mass index [BMI] 40.0-44.9, adult; E44.0 Moderate protein-calorie malnutrition; I50.32 Chronic diastolic (congestive) heart failure; E86.0 Dehydration; I11.0 Hypertensive heart disease with heart failure; E66.01 Morbid (severe) obesity due to excess calories; E78.5 Hyperlipidemia, unspecified; Z90.81 Acquired absence of spleen; Z90.49 Acquired absence of other specified parts of digestive tract; E11.51 Type 2 diabetes mellitus with diabetic peripheral angiopathy without gangrene; I27.20 Pulmonary hypertension, unspecified; G47.30 Sleep apnea, unspecified; J44.9 Chronic obstructive pulmonary disease, unspecified; E05.90 Thyrotoxicosis, unspecified without thyrotoxic crisis or storm; Z79.84 Long term (current) use of oral hypoglycemic drugs
CPT/HCPCS: 36415; 71045-TC; 74018; 74250-TC; 80048-TC; 80053-TC; 80061-TC; 80076-TC; 81000-TC; 82962-TC; 83690-TC; 83735-TC; 84100-TC; 84484-TC; 85025-TC; 85730-TC; 87081-TC; 93307-TC; A4606; C9113; J1170; J1815; J2270; J2405; J3490; J7030; J7040; Q9963; Z7610

== ENCOUNTER 2019-03-24 13:32 | Inpatient (IN) | payer MEDICARE, OTHER ==
[2019-03-24] VITALS (8 sets, daily range): BP systolic 97–122; BP diastolic 47–79
[~2019-03-24] VITALS: Ht 180.3 cm; Wt 135.6 kg
[~2019-03-24 13:32] MED LIST changes: -CARV12.5 PO; +CARV25TA2 PO; +METF-440 PO; -METF500T6 PO; +PITA4TAB PO; -URSO300C12 PO
[2019-03-24] MEDS ORDERED: FUROSEMIDE 100 MG/10 ML VIAL ONE (13:39)
[2019-03-24] MEDS ORDERED: FUROSEMIDE 40 MG/4 ML VIAL ONE (13:40)
--- NOTE | 2019-03-24 13:40 | NUR ---
PT. PLACED INTO BIPAP MACHINE DUE TO INCREASED WOB. PARAMETERS BELOW ORDER: IPAP 15 EPAP 5 RATE 12 FIO2 40% BREATH SOUNDS DIMINISHED BILATERAL. AMBUBAG @ BEDSIDE. Addendum: 03/24/19 at 1401 by MICHAELA BOURNE RT Amended: Links added.
[2019-03-24 13:47] LABS: BASOPHILS # (AUTO) 0.1 /CMM (0.0-0.2); BASOPHILS % (AUTO) 0.7 % (0.0-2.0); EOSINOPHILS % (AUTO) 1.8 % (0.0-6.0); HEMATOCRIT 46 % (39-51); LYMPHOCYTES # (AUTO) 2.1 /CMM (0.8-4.8); LYMPHOCYTES % (AUTO) 24.3 % (20.0-44.0); MEAN CORPUSCULAR HGB CONC 33 g/dl (31.0-36.0); MEAN CORPUSCULAR VOLUME 102 fL (80-96); MONOCYTES # (AUTO) 0.9 /CMM (0.1-1.30); NEUTROPHILS # (AUTO) 5.6 /CMM (1.8-8.9); NEUTROPHILS % (AUTO) 63.2 % (43.0-81.0); PLATELET COUNT (AUTO) 204 /CMM (150-450); RED BLOOD CELL COUNT(AUTO) 4.51 MIL/uL (4.5-6.0); WHITE BLOOD COUNT (AUTO) 8.8 K/uL (4.3-11.0)
[2019-03-24] MEDS ORDERED: SACU1TAB PO (13:52)
[2019-03-24] MEDS ORDERED: INSU100V10 IJ (13:52)
--- NOTE | 2019-03-24 13:56 | NUR ---
PT BROUGHT IN FROM HOME BY PARAMEDICS FOR SOB PT STATES HE CANNOT BREATH PLACED ON BIPAP PIV PLACED LABS TAKEN PICKARD PLACED AND 80 MG OF LASIX GIVEN TOTAL OUTPUT AFTER PICKARD PLACEMENT 110. PT ALERT AND ORIENTED X 3 BUT ANXIOUS. fAMILY MEMBER AT BEDSIDE STATES THAT HE HAS BEEN INCREASING SOB FOR SEVERAL DAYS. PT HAS 18 G IN LAC AND 18G IN RAC. PT BLOOD PRESSURE REDUCING AFTER BIPAP AND PICKARD. PT GIVEN 6 SPRAYS OF NTG IN THE FIELD. WILL CONTINUE TO MONITOR
[2019-03-24] MEDS ORDERED: FUROSEMIDE 40 MG/4 ML VIAL IV ONE (14:00)
[2019-03-24 14:07] LABS: CALCIUM, SERUM 9.3 mg/dL (8.5-10.1); CARBON DIOXIDE 31 mmol/L (21-32); CHLORIDE 102 mmol/L (98-107); CREATININE 1.3 mg/dL (0.6-1.3); GLUCOSE 135 mg/dL (74-106); POTASSIUM 5.5 mmol/L (3.5-5.1); SODIUM SERUM 137 mmol/L (136-145); UREA NITROGEN, BLOOD 34 mg/dL (7-18)
[2019-03-24 14:18] LABS: ALANINE AMINOTRANSFERASE 16 U/L (12-78); ALBUMIN 3.5 g/dL (3.4-5.0); ALKALINE PHOSPHATASE 68 U/L (46-116); ASPARTATE AMINOTRANSFERASE 19 U/L (15-37); B-TYPE NATRIURETIC PEPTIDE 1012 PG/ML (0-125); BILIRUBIN,DIRECT 0.1 mg/dL (0.0-0.2); BILIRUBIN,TOTAL 0.3 mg/dL (0.2-1.0); TOTAL PROTEIN, SERUM 8.3 g/dL (6.4-8.2)
[2019-03-24] MEDS ORDERED: NITROGLYCERIN PACKET 1 GM PACKET TOP ONE (14:30)
[2019-03-24] MEDS ORDERED: ASPIRIN 325 MG TABLET PO ONE (14:30)
[2019-03-24] MEDS ORDERED: ALBUTEROL FS 2.5 MG/3 ML VIAL.NEB NEB ONE (14:30)
[2019-03-24] MEDS ORDERED: IPRATROPIUM NEB FS 0.5 MG/2.5 ML AMPUL.NEB NEB ONE (14:30)
[2019-03-24] MEDS ORDERED: ASPIRIN 325 MG TABLET ONE (14:34)
[2019-03-24] MEDS ORDERED: NITROGLYCERIN PACKET 1 GM PACKET ONE (14:34)
[2019-03-24] MEDS ORDERED: IPRATROPIUM NEB FS 0.5 MG/2.5 ML AMPUL.NEB ONE (14:41)
[2019-03-24] MEDS ORDERED: ALBUTEROL FS 2.5 MG/3 ML VIAL.NEB ONE (14:41)
--- NOTE | 2019-03-24 14:47 | NUR ---
PT BLOOD PRESSURE LESS THAN 100 SYSTOLIC NITROBID 1 GM HELD MD DE LA O AWARE. TOTAL URINE OUT PUT 400ML
[2019-03-24] MEDS ORDERED: IOHEXOL-350 100 ML VIAL IV ONE (15:16)
[2019-03-24] MEDS ORDERED: CT SWABBABLE VALVE TRANS SET 1 EA INFUS.SET MC ONE (15:16)
[2019-03-24] MEDS ORDERED: IV NS 0.9% 250 ML IV ONE (15:17)
--- NOTE | 2019-03-24 15:21 | NUR ---
PT GOING FOR PULMONARY ANGIOGRAM
[2019-03-24 15:45] LABS: ABG BASE EXCESS 0.9 mmol/L; ABG OXYGEN SATURATION 95.4 % (92.0-98.5); ABG PCO2 56.5 mmHg (35.0-45.0); ABG PH 7.317 (7.350-7.450); ABG PO2 78.3 mmHg (75.0-100.0); AaDO2 141.9 mmHg; COHb 1.2 % (0.5-1.5); MetHb 0.4 % (0.0-1.5); O2Hb 93.9 % (94.0-97.0); SITE, ABG Right Brachial
--- NOTE | 2019-03-24 15:47 | NUR ---
ICU BED 259 GIVEN
--- NOTE | 2019-03-24 17:00 | NUR ---
pt. refused to placed back on bipap machine. Addendum: 03/24/19 at 1701 by MICHAELA BOURNE RT Amended: Links added.
--- NOTE | 2019-03-24 17:30 | NUR ---
PRODUCT DEVELOPMENT SPECIALIST: got pt from ER on 4 L n/c, O2 sat 93-95%, no SOB, was on Bipap in ER, refused by report, pH 7.31, pCO2 56, pO2 78, bicarb 28, SR, SBP over 100 below 150, PA done/no PE, no any pain now, pt. at BS, PIVLx2 +, charge nurse is aware/got report
[2019-03-24] MEDS ORDERED: MAG HYDROX/AL HYDROX/SIMETH 30 ML UDC PO PRN (18:00)
[2019-03-24] MEDS ORDERED: HYDROCODONE/APAP 5/325MG 1 EACH TABLET PO PRN (18:00)
[2019-03-24] MEDS ORDERED: *INSULIN REGULAR(HUMULIN R)HUM 100 UNIT/ML VIAL SQ PRN (18:00)
[2019-03-24] MEDS ORDERED: ACETAMINOPHEN 325 MG TABLET PO PRN (18:00)
[2019-03-24] MEDS ORDERED: DEXTROSE 50%-WATER 50 ML DISP.SYRIN IV PRN (18:00)
[2019-03-24] MEDS ORDERED: ZOLPIDEM TARTRATE 5 MG TABLET PO PRN (18:00)
[2019-03-24] MEDS ORDERED: FUROSEMIDE 20 MG/2 ML VIAL IV SCH (18:00)
[2019-03-24] MEDS ORDERED: Z GUARD REMEDY 2 OZ OINT TP PRN (18:00)
[2019-03-24] MEDS ORDERED: ONDANSETRON HCL/PF 4 MG/2 ML VIAL IVP PRN (18:00)
[2019-03-24] MEDS ORDERED: MAGNESIUM HYDROXIDE 30 ML UDC PO PRN (18:00)
[2019-03-24] MEDS ORDERED: NITROGLYCERIN 0.4 MG/TAB BOTTLE SL PRN (18:30)
[2019-03-24] MEDS ORDERED: LORAZEPAM INJ 2 MG/ML VIAL IV PRN (18:30)
[2019-03-24] MEDS: methylPREDNISolone SOD SUCC 40 MG/ML VIAL IV SCH (18:50)
--- NOTE | 2019-03-24 18:55 | NUR ---
VIRTUAL ASSISTANT FOR ADVERTISERS: said start Low carb DM sodium diet
[2019-03-24] MEDS: MORPHINE SULFATE INJ 4 MG/ML DISP.SYRIN IM PRN ×2 (19:00→23:01)
[2019-03-24] MEDS: ALBUTEROL FS 2.5 MG/3 ML VIAL.NEB NEB SCH (19:51)
--- NOTE | 2019-03-24 20:00 | NUR ---
Received patient AAOX4.VSS.SR per monitor.Respiration even and unlabored. With O2 4L 2LNC.SPO2 99%.Noted sob on exertion with HOB elevated.Patient independent with bed mobility.FC to gravity with moderate urine.Plan of care explained to patient and .Verbalized understanding.Continue monitoring.
[2019-03-24] MEDS: ENOXAPARIN SODIUM 120 MG/0.8 ML DISP.SYRIN SQ SCH (20:09)
[2019-03-24] MEDS: INSULIN GLARGINE, 100 UNIT/ML CARTRIDGE SQ SCH (21:00)
[2019-03-24] MEDS: BLOOD SUGAR DIAGNOSTIC 1 EACH STRIP VI SCH (21:30)
[2019-03-24] MEDS: CARVEDILOL 12.5 MG TABLET PO SCH (21:32)
--- NOTE | 2019-03-24 21:35 | NUR ---
Patient AAOX4 c/o back pain offered [place] as PRN but refused.He said he will wait for morphine when its due. Addendum: 03/24/19 at 2141 by ISAMAR GIANG RN Also patient refused Lantus HS coverage.
[2019-03-25] VITALS (20 sets, daily range): BP systolic 84–131; BP diastolic 38–72
--- NOTE | 2019-03-25 01:36 | NUR ---
PT PLACED ON BIPAP PER REQUEST. RN NOTIFIED.
--- NOTE | 2019-03-25 01:40 | NUR ---
Patient complaining of bed very uncomfortable.Bed changed to low air loss mattress. Bathed and linens changed.Verbalized comfort.Placed on BIPAP by SHANNAN PAZ.
[2019-03-25] MEDS: MORPHINE SULFATE INJ 4 MG/ML DISP.SYRIN IM PRN ×2 (03:00→06:53)
--- NOTE | 2019-03-25 04:00 | NUR ---
Patient was on BIPAP from 013 -0 well tolerated then back to 4LNC. Was medicated with morphine for pain and verbalized pain relief.
[2019-03-25 04:55] LABS: BASOPHILS % (AUTO) 0.4 % (0.0-2.0); HEMATOCRIT 43 % (39-51); HEMOGLOBIN 13.6 g/dL (13.5-17.5); LYMPHOCYTES # (AUTO) 0.5 /CMM (0.8-4.8); LYMPHOCYTES % (AUTO) 11.2 % (20.0-44.0); MEAN CORPUSCULAR HGB CONC 32 g/dl (31.0-36.0); MEAN CORPUSCULAR VOLUME 100 fL (80-96); NEUTROPHILS # (AUTO) 4.2 /CMM (1.8-8.9); NEUTROPHILS % (AUTO) 87.4 % (43.0-81.0); PLATELET COUNT (AUTO) 165 /CMM (150-450); RED BLOOD CELL COUNT(AUTO) 4.23 MIL/uL (4.5-6.0); WHITE BLOOD COUNT (AUTO) 4.8 K/uL (4.3-11.0)
[2019-03-25 05:02] LABS: CALCIUM, SERUM 8.6 mg/dL (8.5-10.1); CREATININE 1.2 mg/dL (0.6-1.3); MAGNESIUM 1.7 mg/dL (1.8-2.4); PHOSPHORUS 3.8 mg/dL (2.5-4.9); POTASSIUM 5.5 mmol/L (3.5-5.1)
--- NOTE | 2019-03-25 06:25 | NUR ---
Patient resting VSS.SR/SB 50'S.Denies chest pain or sob.Moderate urine output. All needs anticipated and met.
[2019-03-25] MEDS: BLOOD SUGAR DIAGNOSTIC 1 EACH STRIP VI SCH ×4 (07:33→22:08)
[2019-03-25] MEDS: ALBUTEROL FS 2.5 MG/3 ML VIAL.NEB NEB SCH ×4 (07:39→19:23)
[2019-03-25] MEDS: CARVEDILOL 12.5 MG TABLET PO SCH ×2 (09:00→21:00)
[2019-03-25] MEDS ORDERED: FUROSEMIDE 40 MG/4 ML VIAL IV SCH (09:00)
[2019-03-25] MEDS ORDERED: CARVEDILOL 25 MG TABLET PO SCH (09:00)
[2019-03-25] MEDS: ATORVASTATIN 10 MG TABLET PO SCH (09:01)
[2019-03-25] MEDS: methylPREDNISolone SOD SUCC 40 MG/ML VIAL IV SCH ×3 (09:01→16:45)
[2019-03-25] MEDS: ENOXAPARIN SODIUM 120 MG/0.8 ML DISP.SYRIN SQ SCH ×2 (09:02→22:08)
--- NOTE | 2019-03-25 09:50 | NUR ---
RN NOTE: DR. TORRE WAS IN THE UNIT AND SPOKE WITH HIM REGARDING THE PATIENT'S LOW BP IN THE 90'S. AND COREG WAS HELD, BUT PATIENT WAS ALSO SCHEDULED FOR LASIX. PER MD, HE WOULD TAKE A LOOK AT THE PATIENT AND REVIEW HIS CHART AND WILL DO SOME ADJUSTMENT FOR THE LASIX DOSAGE. LASIX AT 0900 REMAINED NON-ADMINISTERED AT THIS TIME AND PATIENT WAS AWARE OF IT.
[2019-03-25] MEDS: INSULIN GLARGINE, 100 UNIT/ML CARTRIDGE SQ SCH ×2 (09:52→22:06)
[2019-03-25] MEDS: Magnesium 1GM/D5W 100ML PREMIX 100 ML IV SCH ×2 (09:58→10:59)
[2019-03-25] MEDS: FUROSEMIDE 20 MG/2 ML VIAL IV SCH ×2 (11:18→16:45)
--- NOTE | 2019-03-25 11:45 | NUR ---
RN NOTE: DR. PALENCIA WAS INFORMED OF THE ECHOCARDIOGRAM EF=25% AND EKG RESULT. MD WITH NO NEW ORDER. PATIENT DENIED ANY CHEST PAIN.
--- NOTE | 2019-03-25 11:51 | NUR ---
RN NOTE: CALLED AND SPOKE WITH [facility] BOSWELL RN AND GAVE HER REPORT FOR CONTINUITY OF CARE. PATIENT WILL BE GOING TO ROOM 114-1. PATIENT WILL EAT LUNCH AND WILL BE DOWNGRADED AFTER LUNCH.
[2019-03-25] MEDS: INSULIN REGULAR, HUMAN 100 UNIT/ML 3 ML VIAL SQ PRN ×2 (12:13→17:20)
--- NOTE | 2019-03-25 12:35 | NUR ---
RN NOTE: Patient was transported to [facility] Room 114-1 and hand-off report to [facility] Renae RN for continuity of care. All belongings were transported with the patient including his cellphone.
[2019-03-25] MEDS ORDERED: MORPHINE SULFATE INJ 4 MG/ML DISP.SYRIN IV PRN (13:30)
--- NOTE | 2019-03-25 13:31 | NUR ---
public safety telecommunicator note received patient from icu alert , oriented x3 r, placed on 4l nc no sob sat 92 % , rt fa and lt fa hl intact and flushed well , bed in lowest and locked position , call light within reach , plan of care discussed with patient, unit orientation done , vs taken called to dr crawford about morphine to change to iv not im new order carried
[2019-03-25] MEDS ORDERED: GUAIFENESIN/D-METHORPHAN HB 5 ML UDC PO PRN (14:30)
--- NOTE | 2019-03-25 14:51 | NUR ---
[facility] RN NOTE FEELING BETTER 3/10 AFTER MORPHINE WAS GIVEN , ON BREATHING TX AT THIS TIME
[2019-03-25] MEDS ORDERED: IV D5/ 0.9% NACL 1,000 ML IV PRN (16:30)
--- NOTE | 2019-03-25 16:37 | NUR ---
[facility] RN NOTE SIGHNED CONSENT TO GET RECORD D FROM DR SPRINGER ALSO CALLED TO DR NEVAEH JOSE BID TAKE FROM HOME Addendum: 03/25/19 at 1731 by ANDREIA ESPARZA RN inform to pharmacy Sd that home meds given to pharmacy care coordinator, will f\u
[2019-03-25] MEDS: METHIMAZOLE (5MG) 5 MG TABLET PO SCH (17:15)
[2019-03-25] MEDS: VALSARTAN PO SCH (18:10)
[2019-03-25] MEDS: SACUBITRIL PO SCH (18:10)
--- NOTE | 2019-03-25 18:21 | NUR ---
[facility] RN NOTE FAMILY AT BEDSIDE,HAVING DINNER , ABLE TO EAT SELF ,NOT IN ACUTE DUSTERS, WILL MONITOR CLOSELY
--- NOTE | 2019-03-25 20:00 | NUR ---
[facility] RN NOTE PT IN BED AWAKE. A/O X 4, NO SOB, NO DISTRESS OR DISCOMFORT NOTED. DENIES PAIN AT THIS TIME. PT IS GETING B TX PER RT. ON TELE MONITOR SB WITH BBB HR 55. RFA AND LFA SL #18 G INTACT AND PATENT. PT IS HYPOTENSIVE AT THIS TIME. SIDE RAILS UP X 2 AND CALL LIGHT WITHIN REACH. CONTINUE TO MONITOR HIM.
[2019-03-26] VITALS: BP 99/57
[2019-03-26 04:00] VITALS: BP 104/70
[2019-03-26 06:25] LABS: BASOPHILS % (AUTO) 0.2 % (0.0-2.0); EOSINOPHILS % (AUTO) 0.1 % (0.0-6.0); HEMATOCRIT 42 % (39-51); HEMOGLOBIN 13.7 g/dL (13.5-17.5); LYMPHOCYTES # (AUTO) 0.6 /CMM (0.8-4.8); LYMPHOCYTES % (AUTO) 7.6 % (20.0-44.0); MEAN CORPUSCULAR HGB CONC 32 g/dl (31.0-36.0); MEAN CORPUSCULAR VOLUME 100 fL (80-96); MONOCYTES # (AUTO) 0.5 /CMM (0.1-1.30); MONOCYTES % (AUTO) 6.1 % (2.0-12.0); PLATELET COUNT (AUTO) 170 /CMM (150-450); RED BLOOD CELL COUNT(AUTO) 4.22 MIL/uL (4.5-6.0); WHITE BLOOD COUNT (AUTO) 8.2 K/uL (4.3-11.0)
[2019-03-26 06:50] LABS: ALANINE AMINOTRANSFERASE 13 U/L (12-78); ALBUMIN 2.9 g/dL (3.4-5.0); ALKALINE PHOSPHATASE 56 U/L (46-116); ASPARTATE AMINOTRANSFERASE 11 U/L (15-37); BILIRUBIN,TOTAL 0.3 mg/dL (0.2-1.0); CALCIUM, SERUM 8.7 mg/dL (8.5-10.1); CARBON DIOXIDE 31 mmol/L (21-32); CHLORIDE 101 mmol/L (98-107); CREATININE 1.3 mg/dL (0.6-1.3); GLUCOSE 147 mg/dL (74-106); MAGNESIUM 2.1 mg/dL (1.8-2.4); PHOSPHORUS 3.6 mg/dL (2.5-4.9); POTASSIUM 5.3 mmol/L (3.5-5.1); SODIUM SERUM 137 mmol/L (136-145); TOTAL PROTEIN, SERUM 7.1 g/dL (6.4-8.2); UREA NITROGEN, BLOOD 34 mg/dL (7-18)
--- NOTE | 2019-03-26 07:03 | NUR ---
[facility] RN NOTE PT IN BED ASLEEP, AROUSABLE NO DISTRESS OR DISCOMFORT NOTED. NO S/S OF PAIN NOTED. F/C INTACT AND PATENT DRAINING YELLOWISH COLOR URINE. SIDE RAILS UP X 2 AND CALL LIGHT WITHIN REACH. WILL ENDORSE TO DAY SHIFT NURSE FOR CONTINUE TO CARE
--- NOTE | 2019-03-26 07:20 | NUR ---
RN NOTE: RECEIVED PATIENT IN BED, AWAKE, ALERT AND VERBALLY RESPONSIVE. PATIENT WAS SITTING UPRIGHT ON THE BED BREATHING EVENLY AND UNLABORED SATURATING 97%. DENIED ANY PAIN AT THIS TIME. PATIENT ON LOG SKIDDER SB HR= 54. (L) AND (R) FOREARM IV SITE NOTED PATENT AND INTACT. PICKARD CATHETER IN PLACED WITH YELLOW URINE DRAINING TO GRAVITY. BED ALARMED AND LOCKED AT ALL TIMES. AFEBRILE. SKIN WARM TO TOUCH. CALL LIGHT WITHIN REACH. NEEDS ANTICIPATED. BREAKFAST TRAY WAS SERVED TO THE PATIENT.
[2019-03-26] MEDS: ALBUTEROL FS 2.5 MG/3 ML VIAL.NEB NEB SCH ×3 (07:47→15:12)
[2019-03-26 08:00] VITALS: BP 114/73
[2019-03-26] MEDS: BLOOD SUGAR DIAGNOSTIC 1 EACH STRIP VI SCH ×2 (08:00→12:14)
--- NOTE | 2019-03-26 09:30 | NUR ---
RN NOTE: PATIENT BLOOD SUGAR WAS 134. AND PATIENT REFUSED TO RECEIVED REGULAR INSULIN. EXPLAINED RISKS AND BENEFITS, BUT HE STRONGLY REFUSED TO RECEIVE IT.
--- NOTE | 2019-03-26 09:53 | NUR ---
RN NOTE: CALLED AND SPOKE WITH JAQUAN STAFF FROM DR. GATITO SHIRLEY (PRODUCTION ASSISTANT) REGARDING THE PATIENT'S LATEST EXAMS/PROCEDURE DONE AT THE DR'S OFFICE. ACCORDING TO JAQUAN, THE PATIENT HAD A STRESS TEST ON JANUARY 2019. PER JAQUAN, SHE WILL FAX THE RESULT OF THE STRESS TEST AND DR. PALENCIA WAS INFORMED ABOUT IT. WITH NO ORDER AT THIS TIME.
[2019-03-26] MEDS: INSULIN GLARGINE, 100 UNIT/ML CARTRIDGE SQ SCH (10:00)
[2019-03-26] MEDS ORDERED: FUROSEMIDE 80 MG TABLET PO SCH (10:00)
[2019-03-26] MEDS: CARVEDILOL 12.5 MG TABLET PO SCH (10:00)
[2019-03-26] MEDS: VALSARTAN PO SCH (10:00)
[2019-03-26] MEDS ORDERED: METOLAZONE 2.5 MG TABLET PO SCH (10:00)
[2019-03-26] MEDS: SACUBITRIL PO SCH (10:00)
--- NOTE | 2019-03-26 10:00 | NUR ---
RN NOTE: PATIENT'S BLOOD SUGAR RECHECK WAS 118. PATIENT REFUSED TO RECEIVE THE INSULIN LANTUS. EXPLAINED THE BENEFITS AND IMPORTANCE OF IT, BUT PATIENT STRONGLY REFUSED IT. DR. TORRE MADE AWARE.
--- NOTE | 2019-03-26 10:00 | NUR ---
RN NOTE: DR. PALENCIA IN THE UNIT AND WAS GIVEN AN UPDATE REGARDING THE PATIENT'S STRESS TEST THAT WAS DONE AT DR. MEDEROS'S OFFICE BACK ON JANUARY 2019. PER DR. PALENCIA, NO NEW ORDER AT THIS TIME. PER MD, DR. PURI WILL SEE THE PATIENT. PATIENT AWARE.
[2019-03-26] MEDS: methylPREDNISolone SOD SUCC 40 MG/ML VIAL IV SCH ×2 (10:02→12:15)
[2019-03-26] MEDS: METHIMAZOLE (5MG) 5 MG TABLET PO SCH (10:03)
[2019-03-26] MEDS: ENOXAPARIN SODIUM 120 MG/0.8 ML DISP.SYRIN SQ SCH (10:03)
[2019-03-26] MEDS: ATORVASTATIN 10 MG TABLET PO SCH (10:05)
--- NOTE | 2019-03-26 11:50 | NUR ---
RN NOTE: PATIENT'S PICKARD CATHETER WAS REMOVED AND WILL MONITOR FOR ANY URINARY RETENTION.
[2019-03-26 12:00] VITALS: BP 105/67
--- NOTE | 2019-03-26 13:55 | NUR ---
RN NOTE: DR. TORRE WAS IN THE UNIT AND ACCORDING TO HIM, HE WILL WRITE DISCHARGE ORDER FOR THE PATIENT AND WILL WRITE A PRESCRIPTION FOR PREDNISONE TO TAKE AT HOME. PATIENT MADE AWARE.
[2019-03-26] MEDS ORDERED: PRED5TAB48 PO (14:02)
--- NOTE | 2019-03-26 14:59 | NUR ---
RN NOTE: PATIENT WAS OFFERED WITH INFLUENZA AND PNEUMOCOCCAL VACCINE. RECEIVED ORDERS FROM DR. TORRE. PATIENT CONSENTED FOR THE INFLUENZA AND PNEUMOCOCCAL VACCINE.
--- NOTE | 2019-03-26 15:05 | NUR ---
RN NOTE: PATIENT WAS DISCHARGED TO HOME AND WAS ACCOMPANIED BY HIS DAUGHTER LORNA. EXIT CARE WAS DONE AND ALL DISCHARGE PAPERWORK WAS HANDED TO THE PATIENT. PRESCRIPTION FOR THE PREDNISONE WAS GIVEN TO THE PATIENT AND EMPHASIZED TO SEE HIS PRIMARY CARE PHYSICIAN AND FUR JOINER WITHIN THIS WEEK. PATIENT UNDERSTOOD AND AGREED. (L) AND (R) FOREARM IV SITE WAS REMOVED AND PATIENT TOLERATED IT. NO URINARY RETENTION NOTED. PATIENT WAS ABLE TO URINATE WITHIN 30 MINS OF PICKARD CATHETER REMOVAL.
[2019-03-26] MEDS ORDERED: INFLUENZA VACCINE 2019-20 0.5 ML DISP.SYRIN IM ONE (15:30)
[2019-03-26] MEDS ORDERED: PNEUMOCOCCAL 23-VAL P-SAC VAC 0.5 ML VIAL SQ ONE (15:45)
[2019-03-26 16:00] VITALS: BP 109/73
== END 2019-03-26 15:05 | disposition home or self-care (01) | DRG 291 ==
LOC: ER 13:37 → ICU 15:50 → TELE-TD 03-25 12:38 → TELE1 03-25 13:26 → TELE-TD 03-25 13:29
PROVIDERS: ADMIT Hospitalist; ATTEND Hospitalist
PROC: 5A09357 Assistance with Respiratory Ventilation, Less than 24 Consecutive Hours, Continuous Positive Airway Pressure (ICD-10-PCS; principal; 2019-03-24)
DX: I11.0 Hypertensive heart disease with heart failure (principal); J96.00 Acute respiratory failure, unspecified whether with hypoxia or hypercapnia; J44.1 Chronic obstructive pulmonary disease with (acute) exacerbation; Z68.41 Body mass index [BMI] 40.0-44.9, adult; I50.23 Acute on chronic systolic (congestive) heart failure; I25.110 Atherosclerotic heart disease of native coronary artery with unstable angina pectoris; E83.42 Hypomagnesemia; E87.5 Hyperkalemia; E78.5 Hyperlipidemia, unspecified; E66.01 Morbid (severe) obesity due to excess calories; F41.9 Anxiety disorder, unspecified; I27.20 Pulmonary hypertension, unspecified; Z79.82 Long term (current) use of aspirin; Z87.891 Personal history of nicotine dependence; I35.0 Nonrheumatic aortic (valve) stenosis; Z79.84 Long term (current) use of oral hypoglycemic drugs; I95.9 Hypotension, unspecified; E05.90 Thyrotoxicosis, unspecified without thyrotoxic crisis or storm; G47.33 Obstructive sleep apnea (adult) (pediatric); Z90.81 Acquired absence of spleen
CPT/HCPCS: 36415; 36600; 71045-TC; 80048-TC; 80053-TC; 80061-TC; 80076-TC; 82962-TC; 83735-TC; 83880; 84100-TC; 84484-TC; 85025-TC; 85730-TC; 87081-TC; 90732; 93307-TC; 93970-TC; 94760-TC; 97116-TC; 97530-TC; G0378; J1650; J1815; J1940; J2270; J2920; J3475; J7030; J7050; Q2036; Q9967

== ENCOUNTER 2019-06-26 01:57 | Emergency (ER) | payer MEDICARE, OTHER ==
[~2019-06-26] VITALS: Ht 177.8 cm; Wt 140.6 kg
[~2019-06-26 01:57] MED LIST changes: +INSU100V10 IJ; -METF-440 PO; -METH5TAB6 PO; +PRED5TAB48 PO; +SACU1TAB PO
--- NOTE | 2019-06-26 02:18 | NUR ---
PT WAS PLACED ON O2 AT 3LPM UPON TRIAGE TIMEA ND O2 SAT INCREASED DFROM 89 TO 95%.
--- NOTE | 2019-06-26 02:20 | NUR ---
BIB FOR C/O SOB, COUGH AND L BACK PAIN X 2 DAYS. "I FEEL MY CHEST IS GONNA JUMP OUT". SEEN AT [facility] AND STARTED ON KEFLEX YESTERDAY. PT PLACED ON MONITOR AND PULSE OX. AMMON. AT BEDSIDE FOR EVAL.
[2019-06-26] MEDS ORDERED: NITROGLYCERIN PACKET 1 GM PACKET TD ONE (02:30)
[2019-06-26] MEDS ORDERED: methylPREDNISolone SOD SUCC 125 MG/2ML VIAL IV ONE (02:30)
[2019-06-26] MEDS ORDERED: IPRATROPIUM NEB FS 0.5 MG/2.5 ML AMPUL.NEB NEB ONE (02:30)
[2019-06-26] MEDS ORDERED: ALBUTEROL FS 2.5 MG/3 ML VIAL.NEB NEB ONE (02:30)
[2019-06-26] MEDS ORDERED: methylPREDNISolone SOD SUCC 125 MG/2ML VIAL ONE (02:36)
[2019-06-26] MEDS ORDERED: NITROGLYCERIN PACKET 1 GM PACKET ONE (02:36)
[2019-06-26 02:50] LABS: BASOPHILS # (AUTO) 0.1 /CMM (0.0-0.2); BASOPHILS % (AUTO) 0.4 % (0.0-2.0); EOSINOPHILS % (AUTO) 0.1 % (0.0-6.0); HEMATOCRIT 40 % (39-51); HEMOGLOBIN 12.9 g/dL (13.5-17.5); LYMPHOCYTES # (AUTO) 1.1 /CMM (0.8-4.8); LYMPHOCYTES % (AUTO) 7.3 % (20.0-44.0); MEAN CORPUSCULAR HGB CONC 33 g/dl (31.0-36.0); MEAN CORPUSCULAR VOLUME 97 fL (80-96); MONOCYTES # (AUTO) 1.6 /CMM (0.1-1.30); NEUTROPHILS % (AUTO) 81.2 % (43.0-81.0); PLATELET COUNT (AUTO) 159 /CMM (150-450); RED BLOOD CELL COUNT(AUTO) 4.06 MIL/uL (4.5-6.0); WHITE BLOOD COUNT (AUTO) 14.8 K/uL (4.3-11.0)
[2019-06-26 02:52] LABS: CALCIUM, SERUM 8.4 mg/dL (8.5-10.1); CARBON DIOXIDE 29 mmol/L (21-32); CHLORIDE 101 mmol/L (98-107); CREATININE 1.2 mg/dL (0.6-1.3); GLUCOSE 157 mg/dL (74-106); POTASSIUM 4.9 mmol/L (3.5-5.1); SODIUM SERUM 135 mmol/L (136-145); UREA NITROGEN, BLOOD 30 mg/dL (7-18)
[2019-06-26 03:05] LABS: ALANINE AMINOTRANSFERASE 17 U/L (12-78); ALBUMIN 2.8 g/dL (3.4-5.0); ALKALINE PHOSPHATASE 61 U/L (46-116); ASPARTATE AMINOTRANSFERASE 12 U/L (15-37); B-TYPE NATRIURETIC PEPTIDE 4550 PG/ML (0-125); BILIRUBIN,DIRECT 0.2 mg/dL (0.0-0.2); BILIRUBIN,TOTAL 0.9 mg/dL (0.2-1.0); TOTAL PROTEIN, SERUM 7.3 g/dL (6.4-8.2)
[2019-06-26] MEDS ORDERED: IPRATROPIUM NEB FS 0.5 MG/2.5 ML AMPUL.NEB ONE (03:25)
[2019-06-26] MEDS ORDERED: ALBUTEROL FS 2.5 MG/3 ML VIAL.NEB ONE (03:25)
[2019-06-26] MEDS ORDERED: FUROSEMIDE 40 MG/4 ML VIAL IV ONE (03:30)
[2019-06-26] MEDS ORDERED: AZITHROMYCIN 250 MG TABLET PO ONE (03:30)
[2019-06-26 03:41] LABS: APPEARANCE,URINE Clear (CLEAR); BILIRUBIN,URINE Negative (NEGATIVE); BLOOD, URINE Small Ery/uL (NEGATIVE); COLOR,URINE Yellow (YELLOW); KETONES,URINE Negative (NEGATIVE); LEUKOCYTE ESTERASE ,URINE Trace (NEGATIVE); NITRITE, URINE Negative (NEGATIVE); PH,URINE 5.5 (5.0-8.0); PROTEIN,URINE >=300 mg/dl (NEGATIVE); UGLUCOSE Negative (NEGATIVE); UROBILINOGEN,URINE 0.2 EU/dL (0.2)
[2019-06-26] MEDS ORDERED: FUROSEMIDE 40 MG/4 ML VIAL ONE (03:54)
[2019-06-26] MEDS ORDERED: AZITHROMYCIN 250 MG TABLET ONE (03:54)
[2019-06-26 04:10] LABS: BACTERIA,URINE Few /HPF (None Seen); SQUAMOUS EPITHELIAL CELL,UR Rare /HPF (None Seen); WBC,URINE TOO NUMEROUS TO COUN /HPF (0-3)
[2019-06-26 04:39] VITALS: BP 111/68
--- NOTE | 2019-06-26 04:39 | NUR ---
Patient discharged to home in stable condition. Written and verbal after care instructions given. Patient verbalizes understanding of instruction.
[2019-06-26] MEDS ORDERED: MORPHINE SULFATE INJ 2 MG/ML DISP.SYRIN IV ONE (05:00)
== END 2019-06-26 04:54 | disposition home or self-care (01) ==
LOC: ER 02:01
DX: J20.9 Acute bronchitis, unspecified (principal); R82.81 Pyuria; I11.0 Hypertensive heart disease with heart failure; I50.9 Heart failure, unspecified; E11.9 Type 2 diabetes mellitus without complications; F10.10 Alcohol abuse, uncomplicated; Y90.9 Presence of alcohol in blood, level not specified; Z90.89 Acquired absence of other organs; Z98.890 Other specified postprocedural states; Z90.49 Acquired absence of other specified parts of digestive tract; Z91.011 Allergy to milk products; Z87.891 Personal history of nicotine dependence; Z79.4 Long term (current) use of insulin; Z79.899 Other long term (current) drug therapy
CPT/HCPCS: 36415; 71045; 80048; 80076; 81001; 83880; 84484; 85025; 85378; 87040 ×2; 87086; 93005; 94640; 96374; 96375; 99284; J1940; J2930; J7030; 81000-TC

== ENCOUNTER 2019-07-06 16:52 | Inpatient (IN) | payer MEDICARE, OTHER ==
[~2019-07-06] VITALS: Ht 180.3 cm; Wt 113.4 kg
[2019-07-06] MEDS ORDERED: OXYC30TA2 PO (17:46)
--- NOTE | 2019-07-06 18:04 | NUR ---
CALLED FOR TELE BED
[2019-07-06 18:09] LABS: BASOPHILS # (AUTO) 0.1 /CMM (0.0-0.2); BASOPHILS % (AUTO) 0.7 % (0.0-2.0); EOSINOPHILS % (AUTO) 2.2 % (0.0-6.0); HEMATOCRIT 47 % (39-51); HEMOGLOBIN 14.9 g/dL (13.5-17.5); LYMPHOCYTES # (AUTO) 0.7 /CMM (0.8-4.8); LYMPHOCYTES % (AUTO) 6.6 % (20.0-44.0); MEAN CORPUSCULAR HGB CONC 32 g/dl (31.0-36.0); MEAN CORPUSCULAR VOLUME 98 fL (80-96); MONOCYTES # (AUTO) 0.9 /CMM (0.1-1.30); MONOCYTES % (AUTO) 8.9 % (2.0-12.0); NEUTROPHILS # (AUTO) 8.7 /CMM (1.8-8.9); NEUTROPHILS % (AUTO) 81.6 % (43.0-81.0); PLATELET COUNT (AUTO) 223 /CMM (150-450); RED BLOOD CELL COUNT(AUTO) 4.76 MIL/uL (4.5-6.0); WHITE BLOOD COUNT (AUTO) 10.6 K/uL (4.3-11.0)
--- NOTE | 2019-07-06 18:16 | NUR ---
PT BROUGHT IN FROM HOME BY DAUGHTER FOR SEVERAL DAYS OF INCREASING SHORTNESS OF BREATH. PT DYSPMIC MORE SO WHEN FEET ARE ELEVATED. HR INCREASE AND SATURATION DECREASE WITH FEET ELEVATED. PT ALERT AND ORIENTED. PT HAS HISTORY OF CHF, BRONCHITUS, DM. PT PLACED ON CARDIAC MONITOE A-FIB O2 AT 2 LPM NC AND PIV PLACED LABS DRAWN AND SENT FOR PROCESSING. WILL CONTINUE TO MON ITOR.
[2019-07-06 18:19] LABS: CALCIUM, SERUM 9.1 mg/dL (8.5-10.1); CREATININE 1.2 mg/dL (0.6-1.3); POTASSIUM 5.9 mmol/L (3.5-5.1)
[2019-07-06] MEDS ORDERED: FUROSEMIDE 40 MG/4 ML VIAL IV ONE (18:30)
[2019-07-06 18:44] LABS: ALBUMIN 3.2 g/dL (3.4-5.0); BILIRUBIN,DIRECT 0.1 mg/dL (0.0-0.2); BILIRUBIN,TOTAL 0.6 mg/dL (0.2-1.0); TOTAL PROTEIN, SERUM 8.1 g/dL (6.4-8.2)
[2019-07-06] MEDS ORDERED: FUROSEMIDE 40 MG/4 ML VIAL ONE (18:51)
[2019-07-06] MEDS ORDERED: CODEINE/PROMETHAZINE HCL 5 ML UDC PO PRN (19:00)
--- NOTE | 2019-07-06 19:18 | NUR ---
BEKAH ARMENDARIZ PAGED FOR PANEL
[2019-07-06] MEDS ORDERED: MORPHINE SULFATE INJ 2 MG/ML DISP.SYRIN IV ONE (20:00)
--- NOTE | 2019-07-06 20:01 | NUR ---
PT HAD 800ML OUTPUT FROM [employer]
[2019-07-06] MEDS ORDERED: MORPHINE SULFATE INJ 4 MG/ML DISP.SYRIN ONE (20:03)
[2019-07-06] MEDS ORDERED: DEXAMETHASONE SOD PHOSPHATE 10 MG/ML VIAL IV ONE ×2 (20:30→22:30)
[2019-07-06] MEDS ORDERED: BUMETANIDE INJ 4 MG in IV NS 0.9% 24 ML IV ONE ×2 (20:30→22:30)
--- NOTE | 2019-07-06 20:53 | NUR ---
PT ADMITTED TO [address] [place] [address] FOR CHF UNDER SHAHEED NARVAEZ RN REPORT GIVEN TO MESSI ARANGO
[2019-07-06 21:47] VITALS: BP 135/50
[2019-07-06] MEDS ORDERED: Z GUARD REMEDY 2 OZ OINT TP PRN (22:30)
[2019-07-06] MEDS ORDERED: ACETAMINOPHEN 325 MG TABLET PO PRN (22:30)
[2019-07-06] MEDS ORDERED: ONDANSETRON HCL/PF 4 MG/2 ML VIAL IVP PRN (22:30)
[2019-07-06] MEDS: ENOXAPARIN SODIUM 40 MG/0.4 ML DISP.SYRIN SQ SCH (23:14)
[2019-07-06] MEDS: IPRATROPIUM NEB FS 0.5 MG/2.5 ML AMPUL.NEB NEB SCH (23:30)
[2019-07-06] MEDS: ALBUTEROL FS 2.5 MG/0.5 ML VIAL.NEB NEB SCH (23:30)
[2019-07-07] VITALS (8 sets, daily range): BP systolic 94–147; BP diastolic 40–82
--- NOTE | 2019-07-07 00:31 | NUR ---
TEXTED DR KALA HUMMEL FOR PAIN MED,WAITING FOR THE RESPONSE.
--- NOTE | 2019-07-07 00:57 | NUR ---
STILL WAITING FOR THE RESPONSE FROM DR SHAHEED ARMNEDARIZ, HAO IBARRA MADE AWARE.
[2019-07-07] MEDS ORDERED: BUMETANIDE INJ 0.25 MG/ML VIAL ONE (01:07)
[2019-07-07] MEDS ORDERED: HYDROCODONE/APAP 10/325MG 1 EA TABLET PO PRN (01:30)
[2019-07-07] MEDS: ALBUTEROL FS 2.5 MG/0.5 ML VIAL.NEB NEB SCH ×6 (03:16→23:09)
[2019-07-07] MEDS: IPRATROPIUM NEB FS 0.5 MG/2.5 ML AMPUL.NEB NEB SCH ×6 (03:16→23:09)
--- NOTE | 2019-07-07 06:34 | NUR ---
PATIENT INSTRUCTED NPO NOW,VERBALIZED UNDERSTANDING.
[2019-07-07 07:43] LABS: BILIRUBIN,TOTAL 0.4 mg/dL (0.2-1.0); CREATININE 1.4 mg/dL (0.6-1.3); MAGNESIUM 1.7 mg/dL (1.8-2.4); PHOSPHORUS 3.9 mg/dL (2.5-4.9); POTASSIUM 4.9 mmol/L (3.5-5.1); TOTAL PROTEIN, SERUM 7.7 g/dL (6.4-8.2)
--- NOTE | 2019-07-07 07:44 | NUR ---
PRINTED CIRCUIT BOARD PCB DESIGNER OPENING NOTE PATIENT IN BED RESTING COMFORTABLY. PATIENT IN NO ACUTE DISTRESS. NO SOB NOTED. PATIENT BREATHING IS EVEN AND UNLABORED. PATIENT ON CARDIAC MONITORING READING SINUS RHYTHM HR 67 WITH BBB. PATIENT SAFETY PRECAUTIONS IN PLACE. PATIENT BED IS LOCKED AND IN LOWEST POSITION. CALL LIGHT WITHIN REACH. WILL CONTINUE TO MONITOR.
[2019-07-07 07:52] LABS: BASOPHILS % (AUTO) 0.3 % (0.0-2.0); HEMATOCRIT 43 % (39-51); HEMOGLOBIN 14.3 g/dL (13.5-17.5); LYMPHOCYTES # (AUTO) 0.7 /CMM (0.8-4.8); LYMPHOCYTES % (AUTO) 9.2 % (20.0-44.0); MEAN CORPUSCULAR HGB CONC 33 g/dl (31.0-36.0); MEAN CORPUSCULAR VOLUME 97 fL (80-96); MONOCYTES # (AUTO) 0.1 /CMM (0.1-1.30); MONOCYTES % (AUTO) 1.8 % (2.0-12.0); NEUTROPHILS # (AUTO) 6.5 /CMM (1.8-8.9); NEUTROPHILS % (AUTO) 88.7 % (43.0-81.0); PLATELET COUNT (AUTO) 187 /CMM (150-450); RED BLOOD CELL COUNT(AUTO) 4.41 MIL/uL (4.5-6.0); WHITE BLOOD COUNT (AUTO) 7.3 K/uL (4.3-11.0)
[2019-07-07 07:54] LABS: THYROID STIMULATING HORMONE 0.227 uIU/mL (0.358-3.74)
[2019-07-07] MEDS ORDERED: FUROSEMIDE 40 MG TABLET PO PRN (08:00)
[2019-07-07] MEDS ORDERED: Sacubitril/Valsartan (Entresto 24 mg-26 mg Tablet) PO SCH (09:00)
[2019-07-07] MEDS ORDERED: CARVEDILOL 25 MG TABLET PO SCH (09:00)
--- NOTE | 2019-07-07 09:19 | NUR ---
BLANCHING MACHINE OPERATOR NOTE PER PHARMACY GAB[facility] IS NOT AVAILABLE AT THIS TIME. WILL SEND UP TO UNIT WHEN MADE AVAILABLE.
[2019-07-07] MEDS: GUAIFENESIN LA 600 MG TABLET.SA PO SCH ×2 (09:20→21:25)
[2019-07-07] MEDS: ATORVASTATIN 10 MG TABLET PO SCH (09:21)
[2019-07-07] MEDS: CARVEDILOL 12.5 MG TABLET PO SCH ×2 (09:21→16:28)
[2019-07-07] MEDS: FUROSEMIDE 40 MG/4 ML VIAL IV SCH ×3 (09:21→16:28)
[2019-07-07] MEDS ORDERED: MAGNESIUM OXIDE 400 MG TABLET PO ONE (10:00)
--- NOTE | 2019-07-07 11:03 | NUR ---
METER SETTER NOTE BLOOD SUGAR AT 0900 WAS 301, PER PHARMACY [facility] WAS NOT AVAILABLE AND OKAY TO HOLD. RECHECK BLOOD SUGAR NOW AND IS 357, [facility] MADE AVAILABLE AT THIS TIME OKAY TO GIVE PER PHARMACY.
[2019-07-07] MEDS: INSULIN GLARGINE, 100 UNIT/ML CARTRIDGE SQ SCH ×2 (11:08→21:22)
[2019-07-07] MEDS: MORPHINE SULFATE INJ 2 MG/ML DISP.SYRIN IV PRN ×2 (13:33→23:55)
--- NOTE | 2019-07-07 13:59 | NUR ---
LEMON PICKER NOTE PATIENT REFUSING SKIN ASSESSMENT PHOTOS. EDUCATED RISKS VS BENEFITS. PATIENT STATED " NO I WANT TO REST RIGHT NOW, THEY ALREADY TRIED TO TAKE PICTURES." PATIENT CONTINUED TO REFUSE.
--- NOTE | 2019-07-07 18:32 | NUR ---
PACKAGE WINDER CLOSING NOTES PATIENT IN BED RESTING COMFORTABLY. PATIENT IN NO ACUTE DISTRESS. NO SOB NOTED. PATIENT BREATHING IS EVEN AND UNLABORED. PATIENT NEEDS AND CONCERNS ADDRESSED. PATIENT KEPT CLEAN DRY AND COMFORTABLE THROUGHOUT SHIFT. PATIENT ON CARDIAC MONITORING READING SINUS RHYTHM WITH BBB HR 65. PATIENT BED IS LOCKED AND IN LOWEST POSITION. CALL LIGHT WITHIN REACH. WILL ENDORSE CARE TO PM SHIFT FOR L[place]SEY.
--- NOTE | 2019-07-07 20:10 | NUR ---
Recieved sitting in a chair at the bedside. alert and orientated speech clear call light within reach. remined him to call when need to go back to bed or get OOB for safety. noted with dry cough
[2019-07-07] MEDS: ENOXAPARIN SODIUM 40 MG/0.4 ML DISP.SYRIN SQ SCH (21:24)
[2019-07-08] VITALS: BP 130/68
[2019-07-08] MEDS: MORPHINE SULFATE INJ 2 MG/ML DISP.SYRIN IV PRN (01:05)
[2019-07-08] MEDS: IPRATROPIUM NEB FS 0.5 MG/2.5 ML AMPUL.NEB NEB SCH ×3 (03:30→10:42)
[2019-07-08] MEDS: ALBUTEROL FS 2.5 MG/0.5 ML VIAL.NEB NEB SCH ×3 (03:30→10:42)
--- NOTE | 2019-07-08 06:31 | NUR ---
Ending Notes: slept thru the night medicated X1 with Morphine 2 mg IV for pain, and effective. On the tele monitor showing SR. O2 2 liters N/C sats above 92%. Alert and orientated X4 cooperative and pleasent. skin warm and dry contenient. Use the urinal
[2019-07-08 07:30] LABS: BASOPHILS % (AUTO) 0.5 % (0.0-2.0); EOSINOPHILS % (AUTO) 0.1 % (0.0-6.0); HEMATOCRIT 45 % (39-51); HEMOGLOBIN 14.6 g/dL (13.5-17.5); LYMPHOCYTES # (AUTO) 1.1 /CMM (0.8-4.8); LYMPHOCYTES % (AUTO) 13.3 % (20.0-44.0); MEAN CORPUSCULAR HGB CONC 33 g/dl (31.0-36.0); MEAN CORPUSCULAR VOLUME 96 fL (80-96); MONOCYTES # (AUTO) 1.1 /CMM (0.1-1.30); MONOCYTES % (AUTO) 12.6 % (2.0-12.0); NEUTROPHILS # (AUTO) 6.4 /CMM (1.8-8.9); NEUTROPHILS % (AUTO) 73.5 % (43.0-81.0); PLATELET COUNT (AUTO) 207 /CMM (150-450); RED BLOOD CELL COUNT(AUTO) 4.66 MIL/uL (4.5-6.0); WHITE BLOOD COUNT (AUTO) 8.7 K/uL (4.3-11.0)
[2019-07-08 07:43] LABS: ALBUMIN 2.9 g/dL (3.4-5.0); BILIRUBIN,TOTAL 0.3 mg/dL (0.2-1.0); CALCIUM, SERUM 9.4 mg/dL (8.5-10.1); CREATININE 1.2 mg/dL (0.6-1.3); MAGNESIUM 1.8 mg/dL (1.8-2.4); PHOSPHORUS 4.2 mg/dL (2.5-4.9); POTASSIUM 4.3 mmol/L (3.5-5.1); TOTAL PROTEIN, SERUM 7.8 g/dL (6.4-8.2)
--- NOTE | 2019-07-08 07:55 | NUR ---
TELE/RN NOTE THE PATIENT IS RECEIVED IN BED. PATIENT IS ALERT AND ORIENTED X4. IN ROOM AIR AND DENIES SOB. RESPIRATION REGULAR AND UNLABORED. DENIES PAIN. THE PATIENT IN NO APPARENT DISTRESS. LEFT HAND G 20 PATENT AND SALINE LOCKED. BED LOW AND LOCKED. BED LOW AND LOCKED. SIDE RAILS UP X3. CALL LIGHT WIHTIN REACH. WILL CONTINUE TO MONITOR.
[2019-07-08 08:00] VITALS: BP 105/55
[2019-07-08 09:00] VITALS: BP 105/55
[2019-07-08] MEDS: ATORVASTATIN 10 MG TABLET PO SCH (09:00)
[2019-07-08] MEDS: CARVEDILOL 12.5 MG TABLET PO SCH (09:00)
[2019-07-08] MEDS: GUAIFENESIN LA 600 MG TABLET.SA PO SCH (09:59)
[2019-07-08] MEDS: INSULIN GLARGINE, 100 UNIT/ML CARTRIDGE SQ SCH (10:05)
[2019-07-08] MEDS ORDERED: FURO-144 PO (12:33)
[2019-07-08] MEDS ORDERED: GUAI600T53 PO (12:33)
--- NOTE | 2019-07-08 13:58 | NUR ---
MS/RN NOTE THE PATIENT REFUSED DISCHARGE SKIN ASSESSMENT DESPITE EXPLAINING RISKS AND BENEFITS MULTIPLE TIMES. THE PATIENT SAID " THEY ALREADY TOOK PICTURES WHEN I CAME TO THE HOSPITAL, THAT IS ENOUGH, I DON`T WANT ANY MORE PICTURES".
--- NOTE | 2019-07-08 14:00 | NUR ---
MS/RN NOTE THE PATIENT IS ALERT AND ORIENTED X4. IN ROOM AIR AND SATURATION IS AT 96%. DENIES SOB. RESPIRATION REGULAR AND UNLABORED. DENIES PAIN. LEFT HAND G 20 IV REMOVED AND NO BLEEDING NOTED AT THE SITE. DISCHARGE EDUCATION PROVIDED TO THE PATIENT AND HE VERBALIZED UNDERSTANDING. THE PATIENT IS PICKED UP BY . THE PATIENT LEFT THE HOSPITAL IN STABLE CONDITION.
== END 2019-07-08 14:00 | disposition home or self-care (01) | DRG 291 ==
LOC: ER 16:52 → TELE 20:46 → MED 07-08 09:36
PROVIDERS: ADMIT Nurse Practitioner Acute Care; ATTEND Nurse Practitioner Acute Care
DX: I13.0 Hypertensive heart and chronic kidney disease with heart failure and stage 1 through stage 4 chronic kidney disease, or unspecified chronic kidney disease (principal); I50.23 Acute on chronic systolic (congestive) heart failure; N17.0 Acute kidney failure with tubular necrosis; J96.21 Acute and chronic respiratory failure with hypoxia; E44.1 Mild protein-calorie malnutrition; E87.1 Hypo-osmolality and hyponatremia; E83.42 Hypomagnesemia; E87.5 Hyperkalemia; I25.5 Ischemic cardiomyopathy; J44.9 Chronic obstructive pulmonary disease, unspecified; N18.9 Chronic kidney disease, unspecified; E11.22 Type 2 diabetes mellitus with diabetic chronic kidney disease; Z79.4 Long term (current) use of insulin; Z87.891 Personal history of nicotine dependence; E05.90 Thyrotoxicosis, unspecified without thyrotoxic crisis or storm; G47.33 Obstructive sleep apnea (adult) (pediatric); I25.10 Atherosclerotic heart disease of native coronary artery without angina pectoris; J40 Bronchitis, not specified as acute or chronic; Z95.810 Presence of automatic (implantable) cardiac defibrillator; I27.20 Pulmonary hypertension, unspecified; Z68.34 Body mass index [BMI] 34.0-34.9, adult; Z99.81 Dependence on supplemental oxygen
CPT/HCPCS: 36415; 71045-TC; 80048-TC; 80053-TC; 80061-TC; 80076-TC; 82962-TC; 83540-TC; 83605-TC; 83735-TC; 83880; 84100-TC; 84443-TC; 84484-TC; 85025-TC; 85730-TC; 87040-TC; 87081-TC; 93307-TC; 94799-TC; G0378; J1100; J1650; J1815; J1940; J2270; J3490; J7030; J7050

== ENCOUNTER 2023-07-16 12:42 | Inpatient (IN) | payer MEDICARE, OTHER ==
[~2023-07-16] VITALS: Ht 177.8 cm; Wt 98.4 kg
[~2023-07-16 12:42] MED LIST changes: +FURO-144 PO; -FURO40TA5 PO; +GUAI600T53 PO; +OXYC30TA2 PO; -PRED5TAB48 PO
[2023-07-16] MEDS ORDERED: AZIL40TA PO (13:28)
[2023-07-16] MEDS ORDERED: FEBU40TA PO (13:28)
[2023-07-16] MEDS ORDERED: LISI2.5T2 PO (13:28)
[2023-07-16] MEDS ORDERED: METH5TAB6 PO (13:28)
[2023-07-16] MEDS ORDERED: DIPH-824 PO (13:28)
[2023-07-16] MEDS ORDERED: ERGO500093 PO (13:28)
[2023-07-16] MEDS ORDERED: MOUNJARO SQ (13:28)
[2023-07-16] MEDS ORDERED: CYAN10006 SQ (13:28)
[2023-07-16] MEDS ORDERED: CARV6.25 PO (13:28)
[2023-07-16] MEDS ORDERED: ROSU10TA2 PO (13:28)
[2023-07-16] MEDS ORDERED: INSU100V10 SQ (13:28)
[2023-07-16] MEDS ORDERED: LINA145C PO (13:28)
[2023-07-16] MEDS ORDERED: FERR325T28 PO (13:28)
[2023-07-16 13:33] LABS: BASOPHILS # (AUTO) 0.1 K/uL (0.0-0.2); BASOPHILS % (AUTO) 1.1 % (0.0-2.0); EOSINOPHILS # (AUTO) 0.2 K/uL (0.0-0.7); EOSINOPHILS % (AUTO) 4.1 % (0.0-6.0); HEMATOCRIT 39 % (39-51); HEMOGLOBIN 12.4 g/dL (13.5-17.5); LYMPHOCYTES # (AUTO) 0.9 K/uL (0.8-4.8); MEAN CORPUSCULAR HEMOGLOBIN 31 PG (26.0-33.0); MEAN CORPUSCULAR HGB CONC 32 g/dl (31.0-36.0); MEAN CORPUSCULAR VOLUME 98 fL (80-96); MONOCYTES # (AUTO) 0.6 K/uL (0.1-1.30); NEUTROPHILS # (AUTO) 3.5 K/uL (1.8-8.9); NEUTROPHILS % (AUTO) 65.8 % (43.0-81.0); PLATELET COUNT (AUTO) 194 K/uL (150-450); RED BLOOD CELL COUNT(AUTO) 4.02 MIL/uL (4.5-6.0); RED CELL DISTRIBUTION WIDTH 15.4 % (11.5-15.0); WHITE BLOOD COUNT (AUTO) 5.3 K/uL (4.3-11.0)
[2023-07-16 13:46] LABS: CARBON DIOXIDE 36 mmol/L (21-32); CHLORIDE 96 mmol/L (98-107); CREATININE 1.6 mg/dL (0.6-1.3); GLUCOSE 100 mg/dL (74-106); POTASSIUM 5.4 mmol/L (3.5-5.1); SODIUM SERUM 133 mmol/L (136-145); UREA NITROGEN, BLOOD 35 mg/dL (7-18)
[2023-07-16 13:49] LABS: SITE, VBG Other; VBG BASE EXCESS 8.8 mmol/L (-3-3); VBG COHb 0.3 %; VBG MetHb 0.7 %; VBG O2Hb 33.5 %; VBG OXYGEN SATURATION 33.8 %; VBG PCO2 73.2 mmHg (40-52); VBG PH 7.327 (7.31-7.41)
[2023-07-16 13:57] LABS: ALANINE AMINOTRANSFERASE 15 U/L (12-78); ALBUMIN 2.6 g/dL (3.4-5.0); ALKALINE PHOSPHATASE 129 U/L (46-116); ASPARTATE AMINOTRANSFERASE 21 U/L (15-37); BILIRUBIN,DIRECT 0.3 mg/dL (0.0-0.2); BILIRUBIN,TOTAL 0.7 mg/dL (0.2-1.0); NT-PRO BNP 5148 pg/mL (0-125); TOTAL PROTEIN, SERUM 8.2 g/dL (6.4-8.2)
[2023-07-16] MEDS ORDERED: FUROSEMIDE 40 MG/4 ML VIAL ONE ×2 (15:28→15:37)
[2023-07-16] MEDS: FUROSEMIDE 40 MG/4 ML VIAL IV ONE (15:41)
[2023-07-16] MEDS ORDERED: ONDANSETRON HCL/PF 4 MG/2 ML VIAL IVP PRN (16:00)
[2023-07-16] MEDS ORDERED: ALBUTEROL FS 2.5 MG/0.5 ML VIAL.NEB NEB PRN (16:00)
[2023-07-16] MEDS: BUMETANIDE INJ 0.25 MG/ML VIAL IV SCH (17:00)
[2023-07-16] MEDS: METHIMAZOLE (5MG) 5 MG TABLET PO SCH (18:29)
[2023-07-16] MEDS: CARVEDILOL 6.25 MG TABLET PO SCH (18:30)
[2023-07-16] MEDS ORDERED: INSULIN REGULAR, HUMAN 100 UNIT/ML 3 ML VIAL SQ PRN (19:00)
[2023-07-16] MEDS ORDERED: DEXTROSE 50%-WATER 50 ML DISP.SYRIN IV PRN (19:00)
[2023-07-16 19:06] LABS: THYROID STIMULATING HORMONE 124.991 uIU/mL (0.358-3.74)
[2023-07-16 19:32] VITALS: BP 152/74; TEMP 98.2; O2SAT 99
[2023-07-16 19:38] VITALS: O2SAT 97
[2023-07-16 19:48] VITALS: O2SAT 99
[2023-07-16 20:00] VITALS: BP 117/75; TEMP 99.1; O2SAT 92
[2023-07-16] MEDS: ALBUTEROL FS 2.5 MG/3 ML VIAL.NEB NEB SCH (20:17)
[2023-07-16] MEDS: IPRATROPIUM NEB FS 0.5 MG/2.5 ML AMPUL.NEB NEB SCH (20:17)
[2023-07-16] MEDS: ATORVASTATIN 40 MG TABLET PO SCH (21:56)
[2023-07-16] MEDS: MORPHINE SULFATE INJ 2 MG/ML DISP.SYRIN IV PRN (21:59)
[2023-07-16] MEDS: HEPARIN SODIUM, PORCINE 5000 UNITS/1 ML VIAL SQ SCH (22:02)
[2023-07-16] MEDS: BLOOD SUGAR DIAGNOSTIC 1 EACH STRIP VI SCH (22:06)
[2023-07-17] VITALS (8 sets, daily range): BP systolic 110–124; BP diastolic 63–71; TEMP 97.5–98.7; O2SAT 96–99
[2023-07-17 05:53] LABS: ABG BASE EXCESS 8.7 mmol/L; ABG OXYGEN SATURATION 91.5 % (92.0-98.5); ABG PCO2 70.6 mmHg (35.0-45.0); ABG PO2 63.2 mmHg (75.0-100.0); ABG TOTAL HEMOGLOBIN 13.9 G/dL (13.5-18.0); AaDO2 67.7 mmHg; COHb 0.9 % (0.5-1.5); MetHb 0.2 % (0.0-1.5); O2Hb 90.5 % (94.0-97.0); SITE, ABG Right Radial
[2023-07-17 06:38] LABS: BASOPHILS # (AUTO) 0.1 K/uL (0.0-0.2); BASOPHILS % (AUTO) 0.8 % (0.0-2.0); EOSINOPHILS # (AUTO) 0.3 K/uL (0.0-0.7); HEMATOCRIT 39 % (39-51); HEMOGLOBIN 12.6 g/dL (13.5-17.5); LYMPHOCYTES # (AUTO) 0.9 K/uL (0.8-4.8); LYMPHOCYTES % (AUTO) 14.9 % (20.0-44.0); MEAN CORPUSCULAR HEMOGLOBIN 31 PG (26.0-33.0); MEAN CORPUSCULAR HGB CONC 32 g/dl (31.0-36.0); MEAN CORPUSCULAR VOLUME 98 fL (80-96); MONOCYTES # (AUTO) 0.7 K/uL (0.1-1.30); MONOCYTES % (AUTO) 11.8 % (2.0-12.0); NEUTROPHILS # (AUTO) 4.2 K/uL (1.8-8.9); NEUTROPHILS % (AUTO) 68.5 % (43.0-81.0); PLATELET COUNT (AUTO) 177 K/uL (150-450); RED BLOOD CELL COUNT(AUTO) 4.01 MIL/uL (4.5-6.0); WHITE BLOOD COUNT (AUTO) 6.2 K/uL (4.3-11.0)
[2023-07-17 07:11] LABS: ALBUMIN 2.3 g/dL (3.4-5.0); BILIRUBIN,TOTAL 0.8 mg/dL (0.2-1.0); CALCIUM, SERUM 8.9 mg/dL (8.5-10.1); CREATININE 1.5 mg/dL (0.6-1.3); MAGNESIUM 2.2 mg/dL (1.8-2.4); PHOSPHORUS 3.9 mg/dL (2.5-4.9); POTASSIUM 4.7 mmol/L (3.5-5.1); TOTAL PROTEIN, SERUM 7.6 g/dL (6.4-8.2)
[2023-07-17 09:09] LABS: ABG BASE EXCESS 9.4 mmol/L; ABG OXYGEN SATURATION 93.4 % (92.0-98.5); ABG PCO2 69.2 mmHg (35.0-45.0); ABG PH 7.356 (7.350-7.450); ABG PO2 68.2 mmHg (75.0-100.0); ABG TOTAL HEMOGLOBIN 14.7 G/dL (13.5-18.0); MetHb 0.3 % (0.0-1.5); O2Hb 92.2 % (94.0-97.0); SITE, ABG Left Radial; VENT MODE, BG 3 LPM NC
[2023-07-17] MEDS: FERROUS SULFATE (325 MG) 325 MG/TAB TABLET PO SCH (09:11)
[2023-07-17] MEDS: LOSARTAN POTASSIUM 50 MG TABLET PO SCH (09:12)
[2023-07-17] MEDS: LISINOPRIL (5MG) 5 MG TABLET PO SCH (09:12)
[2023-07-17] MEDS: INSULIN GLARGINE, 100 UNIT/ML CARTRIDGE SQ SCH (09:16)
[2023-07-17] MEDS: LEVOTHYROXINE SODIUM 50 MCG TABLET PO SCH (09:20)
[2023-07-17] MEDS: FUROSEMIDE 40 MG/4 ML VIAL IV SCH (10:04)
[2023-07-17] MEDS: ACETAMINOPHEN 325 MG TABLET PO PRN (11:46)
[2023-07-17] MEDS: MORPHINE SULFATE INJ 2 MG/ML DISP.SYRIN IV PRN (15:07)
[2023-07-18] VITALS (12 sets, daily range): BP systolic 108–135; BP diastolic 63–75; TEMP 97.2–98.4; O2SAT 95–99
[2023-07-18 09:56] LABS: BASOPHILS # (AUTO) 0.1 K/uL (0.0-0.2); EOSINOPHILS # (AUTO) 0.3 K/uL (0.0-0.7); HEMATOCRIT 43 % (39-51); HEMOGLOBIN 13.4 g/dL (13.5-17.5); LYMPHOCYTES # (AUTO) 0.8 K/uL (0.8-4.8); LYMPHOCYTES % (AUTO) 13.3 % (20.0-44.0); MEAN CORPUSCULAR HEMOGLOBIN 31 PG (26.0-33.0); MEAN CORPUSCULAR HGB CONC 31 g/dl (31.0-36.0); MEAN CORPUSCULAR VOLUME 99 fL (80-96); MONOCYTES # (AUTO) 0.7 K/uL (0.1-1.30); MONOCYTES % (AUTO) 10.8 % (2.0-12.0); NEUTROPHILS # (AUTO) 4.3 K/uL (1.8-8.9); NEUTROPHILS % (AUTO) 69.9 % (43.0-81.0); PLATELET COUNT (AUTO) 180 K/uL (150-450); RED BLOOD CELL COUNT(AUTO) 4.39 MIL/uL (4.5-6.0); RED CELL DISTRIBUTION WIDTH 15.6 % (11.5-15.0); WHITE BLOOD COUNT (AUTO) 6.1 K/uL (4.3-11.0)
[2023-07-18] MEDS ORDERED: Z GUARD REMEDY 4 OZ OINT TP PRN (10:30)
[2023-07-18 10:32] LABS: ALBUMIN 2.4 g/dL (3.4-5.0); BILIRUBIN,TOTAL 0.7 mg/dL (0.2-1.0); CALCIUM, SERUM 9.1 mg/dL (8.5-10.1); CREATININE 1.5 mg/dL (0.6-1.3); POTASSIUM 4.8 mmol/L (3.5-5.1); TOTAL PROTEIN, SERUM 7.9 g/dL (6.4-8.2)
[2023-07-18 11:43] LABS: MAGNESIUM 2.1 mg/dL (1.8-2.4); PHOSPHORUS 3.8 mg/dL (2.5-4.9)
[2023-07-18] MEDS: Z GUARD REMEDY 4 OZ OINT TP SCH (14:11)
[2023-07-18] MEDS: CLOTRIMAZOLE 1% 15 GM TUBE TP SCH (14:12)
[2023-07-19] VITALS (12 sets, daily range): BP systolic 99–123; BP diastolic 58–80; TEMP 97.2–98.1; O2SAT 93–99
[2023-07-19 04:10] LABS: PTH, INTACT 22 pg/mL (15-65)
[2023-07-19 06:58] LABS: RED CELL DISTRIBUTION WIDTH 15.1 % (11.5-15.0)
[2023-07-19 07:14] LABS: ALBUMIN 2.6 g/dL (3.4-5.0); BILIRUBIN,TOTAL 0.8 mg/dL (0.2-1.0); CALCIUM, SERUM 9.5 mg/dL (8.5-10.1); CREATININE 1.8 mg/dL (0.6-1.3); POTASSIUM 5.2 mmol/L (3.5-5.1); TOTAL PROTEIN, SERUM 7.8 g/dL (6.4-8.2)
[2023-07-19 07:24] LABS: BASOPHILS # (AUTO) 0.1 K/uL (0.0-0.2); BASOPHILS % (AUTO) 0.9 % (0.0-2.0); EOSINOPHILS # (AUTO) 0.3 K/uL (0.0-0.7); EOSINOPHILS % (AUTO) 5.5 % (0.0-6.0); HEMATOCRIT 42 % (39-51); HEMOGLOBIN 13.4 g/dL (13.5-17.5); LYMPHOCYTES % (AUTO) 16.5 % (20.0-44.0); MEAN CORPUSCULAR HEMOGLOBIN 31 PG (26.0-33.0); MEAN CORPUSCULAR HGB CONC 32 g/dl (31.0-36.0); MEAN CORPUSCULAR VOLUME 98 fL (80-96); MONOCYTES # (AUTO) 0.8 K/uL (0.1-1.30); MONOCYTES % (AUTO) 12.8 % (2.0-12.0); NEUTROPHILS # (AUTO) 3.8 K/uL (1.8-8.9); NEUTROPHILS % (AUTO) 64.3 % (43.0-81.0); PLATELET COUNT (AUTO) 183 K/uL (150-450); RED BLOOD CELL COUNT(AUTO) 4.32 MIL/uL (4.5-6.0)
[2023-07-19 10:12] LABS: *SPE A/G RATIO 0.6 (0.7-1.7); *SPE ALBUMIN 2.6 g/dL (2.9-4.4); *SPE ALPHA-1-GLOBULIN 0.3 g/dL (0.0-0.4); *SPE ALPHA-2-GLOBULIN 0.8 g/dL (0.4-1.0); *SPE BETA GLOBULIN 1.3 g/dL (0.7-1.3); *SPE GLOBULIN, TOTAL 4.5 g/dL (2.2-3.9); *SPE M-SPIKE Not Observed g/dL (Not Observed); *SPE PROTEIN TOTAL 7.1 g/dL (6.0-8.5); *SPEGAMMA GLOBULIN 2.1 g/dL (0.4-1.8)
[2023-07-19] MEDS ORDERED: SENNOSIDES 8.6 MG TABLET PO PRN ×2 (14:30)
[2023-07-19 14:54] LABS: ABG BASE EXCESS 11.7 mmol/L; ABG OXYGEN SATURATION 92.3 % (92.0-98.5); ABG PCO2 65.9 mmHg (35.0-45.0); ABG PH 7.396 (7.350-7.450); ABG TOTAL HEMOGLOBIN 14.3 G/dL (13.5-18.0); AaDO2 114.2 mmHg; MetHb 0.2 % (0.0-1.5); O2Hb 91.2 % (94.0-97.0); SITE, ABG Right Radial
[2023-07-19 20:33] LABS: CREATININE, URINE 92.8 MG/DL (30.0-125.0); URINE TOTAL PROTEIN 126.8 mg/dL (0-11.9)
[2023-07-19 21:20] LABS: APPEARANCE,URINE CLOUDY (CLEAR); BILIRUBIN,URINE NEGATIVE (NEGATIVE); BLOOD, URINE 3+ Ery/uL (NEGATIVE); COLOR,URINE YELLOW (YELLOW); KETONES,URINE NEGATIVE (NEGATIVE); LEUKOCYTE ESTERASE ,URINE 1+ (NEGATIVE); NITRITE, URINE POSITIVE (NEGATIVE); PROTEIN,URINE 2+ mg/dl (NEGATIVE); UGLUCOSE NEGATIVE (NEGATIVE); UROBILINOGEN,URINE 0.2 EU/dL (0.2)
[2023-07-19 21:25] LABS: ADD URINE CULTURE YES; BACTERIA,URINE Many /HPF (None Seen); RBC,URINE 51-80 /HPF (0-2)
[2023-07-19 21:26] LABS: SQUAMOUS EPITHELIAL CELL,UR Many /HPF (None Seen)
[2023-07-19 21:37] LABS: EOSINOPHIL,URINE None Seen
[2023-07-19] MEDS: *INSULIN REGULAR(HUMULIN R)HUM 100 UNIT/ML VIAL SQ PRN (21:57)
[2023-07-20] VITALS (7 sets, daily range): BP systolic 108–120; BP diastolic 66–72; TEMP 97.3–97.7; O2SAT 93–99
[2023-07-20 08:28] LABS: BASOPHILS % (AUTO) 0.7 % (0.0-2.0); EOSINOPHILS # (AUTO) 0.4 K/uL (0.0-0.7); EOSINOPHILS % (AUTO) 6.8 % (0.0-6.0); HEMATOCRIT 44 % (39-51); HEMOGLOBIN 14.1 g/dL (13.5-17.5); LYMPHOCYTES # (AUTO) 0.7 K/uL (0.8-4.8); LYMPHOCYTES % (AUTO) 12.7 % (20.0-44.0); MEAN CORPUSCULAR HEMOGLOBIN 31 PG (26.0-33.0); MEAN CORPUSCULAR HGB CONC 32 g/dl (31.0-36.0); MEAN CORPUSCULAR VOLUME 98 fL (80-96); MONOCYTES # (AUTO) 0.7 K/uL (0.1-1.30); MONOCYTES % (AUTO) 12.1 % (2.0-12.0); NEUTROPHILS # (AUTO) 3.9 K/uL (1.8-8.9); NEUTROPHILS % (AUTO) 67.7 % (43.0-81.0); PLATELET COUNT (AUTO) 200 K/uL (150-450); RED BLOOD CELL COUNT(AUTO) 4.49 MIL/uL (4.5-6.0); RED CELL DISTRIBUTION WIDTH 15.4 % (11.5-15.0); WHITE BLOOD COUNT (AUTO) 5.7 K/uL (4.3-11.0)
[2023-07-20 08:37] LABS: ALBUMIN 2.6 g/dL (3.4-5.0); BILIRUBIN,TOTAL 0.8 mg/dL (0.2-1.0); CALCIUM, SERUM 9.3 mg/dL (8.5-10.1); CREATININE 1.7 mg/dL (0.6-1.3); POTASSIUM 4.6 mmol/L (3.5-5.1)
[2023-07-20] MEDS ORDERED: ACET250T9 PO (11:43)
== END 2023-07-20 15:43 | disposition home health service (06) | DRG 291 ==
LOC: ER 12:42 → TELE1 15:44
PROVIDERS: ADMIT Internal Medicine; ATTEND Nurse Practitioner Acute Care
PROC: 5A09357 Assistance with Respiratory Ventilation, Less than 24 Consecutive Hours, Continuous Positive Airway Pressure (ICD-10-PCS; principal; 2023-07-17)
DX: I13.0 Hypertensive heart and chronic kidney disease with heart failure and stage 1 through stage 4 chronic kidney disease, or unspecified chronic kidney disease (principal); I50.23 Acute on chronic systolic (congestive) heart failure; J96.21 Acute and chronic respiratory failure with hypoxia; J96.22 Acute and chronic respiratory failure with hypercapnia; N17.0 Acute kidney failure with tubular necrosis; E66.2 Morbid (severe) obesity with alveolar hypoventilation; E87.1 Hypo-osmolality and hyponatremia; J90 Pleural effusion, not elsewhere classified; N18.30 Chronic kidney disease, stage 3 unspecified; E11.22 Type 2 diabetes mellitus with diabetic chronic kidney disease; E03.9 Hypothyroidism, unspecified; E78.5 Hyperlipidemia, unspecified; I25.10 Atherosclerotic heart disease of native coronary artery without angina pectoris; Z79.4 Long term (current) use of insulin; Z99.81 Dependence on supplemental oxygen; M89.8X9 Other specified disorders of bone, unspecified site; Z95.1 Presence of aortocoronary bypass graft; Z90.49 Acquired absence of other specified parts of digestive tract; I27.20 Pulmonary hypertension, unspecified; D64.9 Anemia, unspecified; J44.9 Chronic obstructive pulmonary disease, unspecified; Z68.31 Body mass index [BMI] 31.0-31.9, adult; E07.9 Disorder of thyroid, unspecified; I35.0 Nonrheumatic aortic (valve) stenosis
CPT/HCPCS: 36415; 36600; 71045-TC; 76536-TC; 76770-TC; 80048-TC; 80053-TC; 80076-TC; 81001; 82550-TC; 82570-TC; 82803-TC; 82962-TC; 83735-TC; 83880; 83970; 84100-TC; 84155; 84165; 84300-TC; 84439-TC; 84443-TC; 84484-TC; 85025-TC; 87086-TC; 93307-TC; 94660; 94799-TC; 97110-TC; 97116-TC; 97530-TC; G0378; J1644; J1815; J1940; J2270; J3490; J7030

== ENCOUNTER 2023-09-02 13:56 | Inpatient (IN) | payer MEDICARE, OTHER ==
[~2023-09-02] VITALS: Ht 170.2 cm; Wt 122.5 kg
[~2023-09-02 13:56] MED LIST changes: +ACET250T9 PO; +AZIL40TA PO; -CARV25TA2 PO; +CARV6.25 PO; +CYAN10006 SQ; +DIPH-824 PO; +ERGO500093 PO; +FEBU40TA PO; +FERR325T28 PO; -FURO-144 PO; -GUAI600T53 PO; -INSU100V10 IJ; +INSU100V10 SQ; +LINA145C PO; +LISI2.5T2 PO; +METH5TAB6 PO; +MOUNJARO SQ; -OXYC30TA2 PO; -PITA4TAB PO; +ROSU10TA2 PO; -SACU1TAB PO
[2023-09-02] MEDS ORDERED: ONDANSETRON HCL/PF 4 MG/2 ML VIAL ONE (14:19)
[2023-09-02] MEDS ORDERED: MORPHINE SULFATE INJ 2 MG/ML DISP.SYRIN ONE (14:19)
[2023-09-02] MEDS: ONDANSETRON HCL/PF 4 MG/2 ML VIAL IV ONE (14:20)
[2023-09-02] MEDS: MORPHINE SULFATE INJ 2 MG/ML DISP.SYRIN IV ONE (14:20)
[2023-09-02 14:48] LABS: BASOPHILS % (AUTO) 0.6 % (0.0-2.0); EOSINOPHILS # (AUTO) 0.1 K/uL (0.0-0.7); EOSINOPHILS % (AUTO) 1.2 % (0.0-6.0); HEMATOCRIT 43 % (39-51); HEMOGLOBIN 13.5 g/dL (13.5-17.5); LYMPHOCYTES # (AUTO) 0.8 K/uL (0.8-4.8); LYMPHOCYTES % (AUTO) 11.2 % (20.0-44.0); MEAN CORPUSCULAR HEMOGLOBIN 31 PG (26.0-33.0); MEAN CORPUSCULAR HGB CONC 32 g/dl (31.0-36.0); MEAN CORPUSCULAR VOLUME 97 fL (80-96); MONOCYTES # (AUTO) 0.6 K/uL (0.1-1.30); MONOCYTES % (AUTO) 9.1 % (2.0-12.0); NEUTROPHILS # (AUTO) 5.4 K/uL (1.8-8.9); NEUTROPHILS % (AUTO) 77.9 % (43.0-81.0); PLATELET COUNT (AUTO) 183 K/uL (150-450); RED BLOOD CELL COUNT(AUTO) 4.39 MIL/uL (4.5-6.0); RED CELL DISTRIBUTION WIDTH 15.1 % (11.5-15.0); WHITE BLOOD COUNT (AUTO) 6.9 K/uL (4.3-11.0)
[2023-09-02] MEDS ORDERED: APIX2.5T PO (14:59)
[2023-09-02] MEDS ORDERED: DIGO125T PO (14:59)
[2023-09-02] MEDS ORDERED: AMIO200T5 PO (14:59)
[2023-09-02] MEDS ORDERED: FINA5TAB11 PO (14:59)
[2023-09-02 15:00] LABS: INR 1.13 (0.91-1.10); PARTIAL THROMBOPLASTIN TIME 30.2 SEC (24.3-34.3); PROTHROMBIN TIME 11.5 SECS (9.2-11.1)
[2023-09-02 15:05] LABS: LACTIC ACID 0.9 mmol/L (0.4-2.0)
[2023-09-02 15:28] LABS: SERUM AMMONIA < 10 umol/L (11-32)
[2023-09-02 15:52] LABS: CALCIUM, SERUM 9.8 mg/dL (8.5-10.1); CARBON DIOXIDE 28 mmol/L (21-32); CHLORIDE 96 mmol/L (98-107); CREATININE 2.4 mg/dL (0.6-1.3); GLUCOSE 108 mg/dL (74-106); POTASSIUM 4.8 mmol/L (3.5-5.1); SODIUM SERUM 134 mmol/L (136-145); UREA NITROGEN, BLOOD 67 mg/dL (7-18)
[2023-09-02 15:57] LABS: ALANINE AMINOTRANSFERASE 25 U/L (12-78); ALBUMIN 2.8 g/dL (3.4-5.0); ALKALINE PHOSPHATASE 127 U/L (46-116); ASPARTATE AMINOTRANSFERASE 23 U/L (15-37); BILIRUBIN,DIRECT 0.4 mg/dL (0.0-0.2); BILIRUBIN,TOTAL 1.1 mg/dL (0.2-1.0); TOTAL PROTEIN, SERUM 8.8 g/dL (6.4-8.2)
[2023-09-02] MEDS ORDERED: HYDROMORPHONE 1 MG/1 ML DISP.SYRIN ONE (16:28)
[2023-09-02] MEDS: HYDROMORPHONE 1 MG/1 ML DISP.SYRIN IV ONE (16:30)
[2023-09-02] MEDS ORDERED: HYDROMORPHONE 1 MG/1 ML DISP.SYRIN IV ONE (17:30)
[2023-09-02] MEDS ORDERED: LIDOCAINE 2% JEL UROJET 10 ML MM ONE (17:47)
[2023-09-02] MEDS ORDERED: ONDANSETRON HCL/PF 4 MG/2 ML VIAL IVP PRN (18:00)
[2023-09-02] MEDS ORDERED: ACETAMINOPHEN 650 MG/SUPP.RECT RC PRN (18:00)
[2023-09-02] MEDS ORDERED: DIATR MEGLU/DIATRIZOATE SODIUM 30 ML BOTTLE (GASTROGRAPHIN) ONE (18:19)
[2023-09-02] MEDS: LIDOCAINE 2% JEL 5 ML TUBE MC ONE (18:26)
[2023-09-02 20:45] VITALS: BP 108/64; TEMP 97.5; O2SAT 98
[2023-09-02] MEDS: MORPHINE SULFATE INJ 2 MG/ML DISP.SYRIN IV PRN (21:40)
[2023-09-03] VITALS (8 sets, daily range): BP systolic 90–108; BP diastolic 57–69; TEMP 97.4–97.5; O2SAT 63–98
[2023-09-03 07:32] LABS: BASOPHILS % (AUTO) 0.6 % (0.0-2.0); EOSINOPHILS # (AUTO) 0.2 K/uL (0.0-0.7); EOSINOPHILS % (AUTO) 2.4 % (0.0-6.0); HEMATOCRIT 40 % (39-51); HEMOGLOBIN 12.9 g/dL (13.5-17.5); LYMPHOCYTES # (AUTO) 0.8 K/uL (0.8-4.8); LYMPHOCYTES % (AUTO) 12.8 % (20.0-44.0); MEAN CORPUSCULAR HEMOGLOBIN 31 PG (26.0-33.0); MEAN CORPUSCULAR HGB CONC 32 g/dl (31.0-36.0); MEAN CORPUSCULAR VOLUME 96 fL (80-96); MONOCYTES # (AUTO) 0.7 K/uL (0.1-1.30); MONOCYTES % (AUTO) 11.4 % (2.0-12.0); NEUTROPHILS # (AUTO) 4.7 K/uL (1.8-8.9); NEUTROPHILS % (AUTO) 72.8 % (43.0-81.0); PLATELET COUNT (AUTO) 179 K/uL (150-450); RED BLOOD CELL COUNT(AUTO) 4.14 MIL/uL (4.5-6.0); RED CELL DISTRIBUTION WIDTH 15.2 % (11.5-15.0); WHITE BLOOD COUNT (AUTO) 6.5 K/uL (4.3-11.0)
[2023-09-03 07:46] LABS: CALCIUM, SERUM 9.4 mg/dL (8.5-10.1); CREATININE 2.1 mg/dL (0.6-1.3); MAGNESIUM 2.3 mg/dL (1.8-2.4); PHOSPHORUS 4.6 mg/dL (2.5-4.9); POTASSIUM 4.2 mmol/L (3.5-5.1)
[2023-09-03] MEDS: PANTOPRAZOLE 40 MG VIAL IV SCH (08:54)
[2023-09-03] MEDS: IV D5/ 0.9% NACL 1,000 ML IV PRN (12:20)
[2023-09-04 07:36] LABS: BASOPHILS % (AUTO) 0.5 % (0.0-2.0); EOSINOPHILS # (AUTO) 0.1 K/uL (0.0-0.7); EOSINOPHILS % (AUTO) 1.3 % (0.0-6.0); HEMATOCRIT 47 % (39-51); HEMOGLOBIN 14.5 g/dL (13.5-17.5); LYMPHOCYTES # (AUTO) 0.9 K/uL (0.8-4.8); LYMPHOCYTES % (AUTO) 10.1 % (20.0-44.0); MEAN CORPUSCULAR HEMOGLOBIN 31 PG (26.0-33.0); MEAN CORPUSCULAR HGB CONC 31 g/dl (31.0-36.0); MEAN CORPUSCULAR VOLUME 100 fL (80-96); MONOCYTES # (AUTO) 0.8 K/uL (0.1-1.30); MONOCYTES % (AUTO) 8.2 % (2.0-12.0); NEUTROPHILS # (AUTO) 7.5 K/uL (1.8-8.9); NEUTROPHILS % (AUTO) 79.9 % (43.0-81.0); PLATELET COUNT (AUTO) 180 K/uL (150-450); RED BLOOD CELL COUNT(AUTO) 4.66 MIL/uL (4.5-6.0); RED CELL DISTRIBUTION WIDTH 15.7 % (11.5-15.0); WHITE BLOOD COUNT (AUTO) 9.3 K/uL (4.3-11.0)
[2023-09-04 08:00] VITALS: BP 125/84; TEMP 98.4; O2SAT 97
[2023-09-04 10:20] LABS: CALCIUM, SERUM 8.9 mg/dL (8.5-10.1); POTASSIUM 4.8 mmol/L (3.5-5.1)
[2023-09-04 12:00] VITALS: BP 130/65; TEMP 97.3; O2SAT 97
[2023-09-04 14:33] VITALS: O2SAT 95
[2023-09-04 16:00] VITALS: BP 108/59; TEMP 97.3; O2SAT 99
[2023-09-04 21:56] VITALS: BP 112/65; TEMP 97.7; O2SAT 96
[2023-09-05] VITALS (8 sets, daily range): BP systolic 105–115; BP diastolic 63–75; TEMP 97.4–98.5; O2SAT 94–100
[2023-09-05 00:35] LABS: APPEARANCE,URINE CLEAR (CLEAR); BILIRUBIN,URINE NEGATIVE (NEGATIVE); BLOOD, URINE NEGATIVE Ery/uL (NEGATIVE); COLOR,URINE DARK YELLOW (YELLOW); KETONES,URINE NEGATIVE (NEGATIVE); LEUKOCYTE ESTERASE ,URINE TRACE (NEGATIVE); NITRITE, URINE POSITIVE (NEGATIVE); PH,URINE 5.5 (5.0-8.0); PROTEIN,URINE 2+ mg/dl (NEGATIVE); UGLUCOSE NEGATIVE (NEGATIVE); UROBILINOGEN,URINE 0.2 EU/dL (0.2)
[2023-09-05 00:41] LABS: ADD URINE CULTURE YES; BACTERIA,URINE Few /HPF (None Seen); SQUAMOUS EPITHELIAL CELL,UR Rare /HPF (None Seen)
[2023-09-05 00:42] LABS: EOSINOPHIL,URINE None Seen
[2023-09-05 00:50] LABS: CREATININE, URINE 105.3 MG/DL (30.0-125.0)
[2023-09-05 07:23] LABS: BASOPHILS # (AUTO) 0.1 K/uL (0.0-0.2); BASOPHILS % (AUTO) 0.9 % (0.0-2.0); EOSINOPHILS # (AUTO) 0.3 K/uL (0.0-0.7); EOSINOPHILS % (AUTO) 4.1 % (0.0-6.0); HEMATOCRIT 41 % (39-51); LYMPHOCYTES # (AUTO) 0.9 K/uL (0.8-4.8); LYMPHOCYTES % (AUTO) 11.2 % (20.0-44.0); MEAN CORPUSCULAR HEMOGLOBIN 32 PG (26.0-33.0); MEAN CORPUSCULAR HGB CONC 32 g/dl (31.0-36.0); MEAN CORPUSCULAR VOLUME 98 fL (80-96); MONOCYTES % (AUTO) 12.5 % (2.0-12.0); NEUTROPHILS # (AUTO) 5.6 K/uL (1.8-8.9); NEUTROPHILS % (AUTO) 71.3 % (43.0-81.0); PLATELET COUNT (AUTO) 161 K/uL (150-450); RED BLOOD CELL COUNT(AUTO) 4.14 MIL/uL (4.5-6.0); RED CELL DISTRIBUTION WIDTH 15.1 % (11.5-15.0); WHITE BLOOD COUNT (AUTO) 7.8 K/uL (4.3-11.0)
[2023-09-05 07:53] LABS: CALCIUM, SERUM 8.7 mg/dL (8.5-10.1); CREATININE 1.9 mg/dL (0.6-1.3); MAGNESIUM 2.2 mg/dL (1.8-2.4); PHOSPHORUS 2.8 mg/dL (2.5-4.9); POTASSIUM 3.9 mmol/L (3.5-5.1)
[2023-09-05] MEDS: CARVEDILOL 6.25 MG TABLET PO SCH (08:27)
[2023-09-05] MEDS: FINASTERIDE (5 MG) 5 MG TABLET PO SCH (08:38)
[2023-09-05] MEDS: AMIODARONE HCL 200 MG TABLET PO SCH (08:46)
[2023-09-05 08:51] LABS: THYROID STIMULATING HORMONE 87.915 uIU/mL (0.358-3.74)
[2023-09-05] MEDS ORDERED: Medication Not On Formulary EA (Linaclotide (Linzess) 145 MCG) PO SCH (09:00)
[2023-09-05] MEDS ORDERED: DIGOXIN 0.125 MG TABLET PO SCH (09:00)
[2023-09-05] MEDS: LEVOTHYROXINE SODIUM 75 MCG TABLET PO SCH (13:44)
[2023-09-06] MEDS: MORPHINE SULFATE INJ 2 MG/ML DISP.SYRIN IV ONE (00:53)
[2023-09-06 01:06] VITALS: BP 107/68; TEMP 97.9; O2SAT 97
[2023-09-06 02:18] VITALS: O2SAT 100
[2023-09-06 05:43] VITALS: BP 109/63; TEMP 97.8; O2SAT 99
[2023-09-06 07:29] LABS: BASOPHILS % (AUTO) 0.8 % (0.0-2.0); EOSINOPHILS # (AUTO) 0.3 K/uL (0.0-0.7); EOSINOPHILS % (AUTO) 5.8 % (0.0-6.0); HEMATOCRIT 42 % (39-51); HEMOGLOBIN 13.5 g/dL (13.5-17.5); LYMPHOCYTES % (AUTO) 17.2 % (20.0-44.0); MEAN CORPUSCULAR HEMOGLOBIN 31 PG (26.0-33.0); MEAN CORPUSCULAR HGB CONC 32 g/dl (31.0-36.0); MEAN CORPUSCULAR VOLUME 98 fL (80-96); MONOCYTES # (AUTO) 0.6 K/uL (0.1-1.30); MONOCYTES % (AUTO) 11.6 % (2.0-12.0); NEUTROPHILS # (AUTO) 3.6 K/uL (1.8-8.9); NEUTROPHILS % (AUTO) 64.6 % (43.0-81.0); PLATELET COUNT (AUTO) 165 K/uL (150-450); RED BLOOD CELL COUNT(AUTO) 4.32 MIL/uL (4.5-6.0); RED CELL DISTRIBUTION WIDTH 15.6 % (11.5-15.0); WHITE BLOOD COUNT (AUTO) 5.5 K/uL (4.3-11.0)
[2023-09-06 07:52] VITALS: O2SAT 99
[2023-09-06 08:00] VITALS: BP 105/67; TEMP 97.5; O2SAT 99
[2023-09-06 08:14] LABS: CALCIUM, SERUM 8.8 mg/dL (8.5-10.1); CREATININE 1.9 mg/dL (0.6-1.3); MAGNESIUM 2.3 mg/dL (1.8-2.4); PHOSPHORUS 2.6 mg/dL (2.5-4.9)
[2023-09-06] MEDS: CLOTRIMAZOLE 1% 15 GM TUBE TP SCH (11:14)
[2023-09-06] MEDS: LIOTHYRONINE SODIUM (25 MCG) 25 MCG TABLET PO SCH (11:14)
[2023-09-06] MEDS: MINERAL OIL/PETROL OINT 396 GM JAR TP SCH (11:14)
[2023-09-06] MEDS: Z GUARD REMEDY 4 OZ OINT TP PRN (11:15)
[2023-09-06 12:00] VITALS: BP 109/68; TEMP 97.7; O2SAT 100
[2023-09-06] MEDS ORDERED: LEVO112T5 PO (13:44)
[2023-09-07] MEDS ORDERED: PANTOPRAZOLE 40 MG/PACK PACK PO SCH (09:00)
== END 2023-09-06 15:00 | disposition home or self-care (01) | DRG 389 ==
LOC: ER 14:04 → MED 20:16 → TELE 20:34
PROVIDERS: ADMIT Nurse Practitioner Family; ATTEND Nurse Practitioner Acute Care
DX: K56.609 Unspecified intestinal obstruction, unspecified as to partial versus complete obstruction (principal); E66.2 Morbid (severe) obesity with alveolar hypoventilation; I13.0 Hypertensive heart and chronic kidney disease with heart failure and stage 1 through stage 4 chronic kidney disease, or unspecified chronic kidney disease; J96.10 Chronic respiratory failure, unspecified whether with hypoxia or hypercapnia; N17.9 Acute kidney failure, unspecified; J98.11 Atelectasis; L03.311 Cellulitis of abdominal wall; J90 Pleural effusion, not elsewhere classified; E87.1 Hypo-osmolality and hyponatremia; N18.32 Chronic kidney disease, stage 3b; I50.9 Heart failure, unspecified; I25.10 Atherosclerotic heart disease of native coronary artery without angina pectoris; Z95.1 Presence of aortocoronary bypass graft; E11.22 Type 2 diabetes mellitus with diabetic chronic kidney disease; Z90.49 Acquired absence of other specified parts of digestive tract; Z98.890 Other specified postprocedural states; Z91.011 Allergy to milk products; Z79.01 Long term (current) use of anticoagulants; Z79.899 Other long term (current) drug therapy; Z95.0 Presence of cardiac pacemaker; Z87.19 Personal history of other diseases of the digestive system; Z82.49 Family history of ischemic heart disease and other diseases of the circulatory system; E78.5 Hyperlipidemia, unspecified; E03.9 Hypothyroidism, unspecified; E86.1 Hypovolemia; I27.20 Pulmonary hypertension, unspecified; J44.9 Chronic obstructive pulmonary disease, unspecified; Z87.01 Personal history of pneumonia (recurrent); Z87.891 Personal history of nicotine dependence; R19.00 Intra-abdominal and pelvic swelling, mass and lump, unspecified site; K57.90 Diverticulosis of intestine, part unspecified, without perforation or abscess without bleeding
CPT/HCPCS: 36415; 71045-TC; 74018; 74250-TC; 76536-TC; 76770-TC; 80048-TC; 80076-TC; 81001; 82140-TC; 82570-TC; 83605-TC; 83735-TC; 84100-TC; 84300-TC; 84439-TC; 84443-TC; 84481; 84484-TC; 85025-TC; 85730-TC; 87040-TC; 94760-TC; 94799-TC; A4223; C9113; G0378; J1170; J2270; J2405; J3490; J7042; Q9963

== ENCOUNTER 2023-10-05 08:44 | Inpatient (IN) | payer MEDICARE, OTHER ==
[~2023-10-05] VITALS: Ht 177.8 cm; Wt 120.8 kg
[~2023-10-05 08:44] MED LIST changes: -ACET250T9 PO; +AMIO200T5 PO; +APIX2.5T PO; -AZIL40TA PO; +DIGO125T PO; -DIPH-824 PO; -FEBU40TA PO; -FERR325T28 PO; +FINA5TAB11 PO; -INSU100V10 SQ; +LEVO112T5 PO; -METH5TAB6 PO; -MOUNJARO SQ; -ROSU10TA2 PO
[2023-10-05 09:17] LABS: BASOPHILS % (AUTO) 0.6 % (0.0-2.0); EOSINOPHILS # (AUTO) 0.1 K/uL (0.0-0.7); EOSINOPHILS % (AUTO) 1.1 % (0.0-6.0); HEMATOCRIT 37 % (39-51); HEMOGLOBIN 11.7 g/dL (13.5-17.5); LYMPHOCYTES # (AUTO) 0.8 K/uL (0.8-4.8); LYMPHOCYTES % (AUTO) 10.1 % (20.0-44.0); MEAN CORPUSCULAR HEMOGLOBIN 31 PG (26.0-33.0); MEAN CORPUSCULAR HGB CONC 32 g/dl (31.0-36.0); MEAN CORPUSCULAR VOLUME 98 fL (80-96); MONOCYTES # (AUTO) 0.8 K/uL (0.1-1.30); MONOCYTES % (AUTO) 10.3 % (2.0-12.0); NEUTROPHILS # (AUTO) 6.3 K/uL (1.8-8.9); NEUTROPHILS % (AUTO) 77.9 % (43.0-81.0); PLATELET COUNT (AUTO) 161 K/uL (150-450); RED BLOOD CELL COUNT(AUTO) 3.77 MIL/uL (4.5-6.0); RED CELL DISTRIBUTION WIDTH 15.9 % (11.5-15.0)
[2023-10-05 09:41] LABS: CALCIUM, SERUM 9.6 mg/dL (8.5-10.1); CREATININE 2.1 mg/dL (0.6-1.3); POTASSIUM 5.3 mmol/L (3.5-5.1)
[2023-10-05 09:47] LABS: ALBUMIN 2.8 g/dL (3.4-5.0); BILIRUBIN,TOTAL 0.9 mg/dL (0.2-1.0); TOTAL PROTEIN, SERUM 8.5 g/dL (6.4-8.2)
[2023-10-05 10:19] LABS: APPEARANCE,URINE CLEAR (CLEAR); BILIRUBIN,URINE NEGATIVE (NEGATIVE); BLOOD, URINE NEGATIVE Ery/uL (NEGATIVE); COLOR,URINE YELLOW (YELLOW); KETONES,URINE TRACE mg/dL (NEGATIVE); LEUKOCYTE ESTERASE ,URINE NEGATIVE (NEGATIVE); NITRITE, URINE NEGATIVE (NEGATIVE); PROTEIN,URINE 1+ mg/dl (NEGATIVE); UGLUCOSE NEGATIVE (NEGATIVE); UROBILINOGEN,URINE 0.2 EU/dL (0.2)
[2023-10-05 10:22] LABS: ADD URINE CULTURE NO; BACTERIA,URINE Few /HPF (None Seen); RBC,URINE 0-2 /HPF (0-2); SQUAMOUS EPITHELIAL CELL,UR Few /HPF (None Seen); WBC,URINE 0-3 /HPF (0-3)
[2023-10-05] MEDS ORDERED: MORPHINE SULFATE INJ 4 MG/ML DISP.SYRIN ONE (10:28)
[2023-10-05] MEDS: MORPHINE SULFATE INJ 2 MG/ML DISP.SYRIN IV ONE (10:31)
[2023-10-05] MEDS ORDERED: Z GUARD REMEDY 4 OZ OINT TP PRN (13:00)
[2023-10-05] MEDS ORDERED: MAGNESIUM HYDROXIDE 30 ML UDC PO PRN (13:00)
[2023-10-05] MEDS ORDERED: ACETAMINOPHEN 325 MG TABLET PO PRN (13:00)
[2023-10-05] MEDS ORDERED: ZOLPIDEM TARTRATE 5 MG TABLET PO PRN (13:00)
[2023-10-05] MEDS ORDERED: DEXTROSE 50%-WATER 50 ML DISP.SYRIN IV PRN (13:00)
[2023-10-05] MEDS ORDERED: ONDANSETRON HCL/PF 4 MG/2 ML VIAL IVP PRN (13:00)
[2023-10-05 13:30] VITALS: BP 116/69; TEMP 97.7; O2SAT 100
[2023-10-05] MEDS: MAG HYDROX/AL HYDROX/SIMETH 30 ML UDC PO PRN (15:21)
[2023-10-05] MEDS: METOCLOPRAMIDE HCL 10 MG TABLET PO SCH (15:21)
[2023-10-05] MEDS: IV NS 0.9% 1,000 ML IV ONE (15:28)
[2023-10-05] MEDS: TAMSULOSIN 0.4 MG CAP.SR.24H PO ONE (15:57)
[2023-10-05 16:00] VITALS: BP 119/73; TEMP 97.5; O2SAT 98
[2023-10-05] MEDS ORDERED: TAMSULOSIN 0.4 MG CAP.SR.24H PO SCH (16:00)
[2023-10-05] MEDS: APIXABAN 2.5 MG TABLET PO SCH (16:31)
[2023-10-05] MEDS: BLOOD SUGAR DIAGNOSTIC 1 EACH STRIP IN SCH (16:53)
[2023-10-05] MEDS: INSULIN REGULAR, HUMAN 100 UNIT/ML 3 ML VIAL SQ PRN (16:56)
[2023-10-05] MEDS: DOCUSATE SODIUM 100 MG CAPSULE PO SCH (17:03)
[2023-10-05] MEDS: POLYETHYLENE GLYCOL 3350 17 GM POWD.PACK PO PRN (17:04)
[2023-10-05] MEDS: SODIUM POLYSTYRENE SULFONATE 15 G/60 ML BOTTLE PO ONE (21:45)
[2023-10-06 08:00] VITALS: BP 92/60; TEMP 97.5; O2SAT 100
[2023-10-06] MEDS: FINASTERIDE (5 MG) 5 MG TABLET PO SCH (08:56)
[2023-10-06] MEDS: PANTOPRAZOLE 40 MG VIAL IV SCH (08:56)
[2023-10-06] MEDS: CARVEDILOL 6.25 MG TABLET PO SCH (09:00)
[2023-10-06] MEDS: AMIODARONE HCL 200 MG TABLET PO SCH (09:00)
[2023-10-06] MEDS ORDERED: LINACLOTIDE 145 MCG PO SCH (09:00)
[2023-10-06] MEDS ORDERED: DIGOXIN 0.125 MG TABLET PO SCH (09:00)
[2023-10-06] MEDS: LEVOTHYROXINE SODIUM 112 MCG TABLET PO SCH (10:55)
[2023-10-06] MEDS: MORPHINE SULFATE INJ 2 MG/ML DISP.SYRIN IV PRN (11:02)
[2023-10-06 11:25] LABS: ALBUMIN 2.6 g/dL (3.4-5.0); BILIRUBIN,DIRECT 0.6 mg/dL (0.0-0.2); BILIRUBIN,TOTAL 1.3 mg/dL (0.2-1.0); CALCIUM, SERUM 8.7 mg/dL (8.5-10.1); CREATININE 1.7 mg/dL (0.6-1.3); MAGNESIUM 2.2 mg/dL (1.8-2.4); PHOSPHORUS 3.7 mg/dL (2.5-4.9); POTASSIUM 4.8 mmol/L (3.5-5.1); TOTAL PROTEIN, SERUM 8.1 g/dL (6.4-8.2)
[2023-10-06 11:29] LABS: THYROID STIMULATING HORMONE 12.537 uIU/mL (0.358-3.74)
[2023-10-06 11:44] LABS: BASOPHILS # (AUTO) 0.1 K/uL (0.0-0.2); BASOPHILS % (AUTO) 0.7 % (0.0-2.0); EOSINOPHILS # (AUTO) 0.2 K/uL (0.0-0.7); EOSINOPHILS % (AUTO) 2.5 % (0.0-6.0); HEMATOCRIT 38 % (39-51); HEMOGLOBIN 11.9 g/dL (13.5-17.5); LYMPHOCYTES # (AUTO) 0.8 K/uL (0.8-4.8); MEAN CORPUSCULAR HEMOGLOBIN 31 PG (26.0-33.0); MEAN CORPUSCULAR HGB CONC 32 g/dl (31.0-36.0); MEAN CORPUSCULAR VOLUME 98 fL (80-96); MONOCYTES # (AUTO) 0.8 K/uL (0.1-1.30); MONOCYTES % (AUTO) 10.4 % (2.0-12.0); NEUTROPHILS # (AUTO) 5.9 K/uL (1.8-8.9); NEUTROPHILS % (AUTO) 76.4 % (43.0-81.0); PLATELET COUNT (AUTO) 154 K/uL (150-450); RED BLOOD CELL COUNT(AUTO) 3.85 MIL/uL (4.5-6.0); RED CELL DISTRIBUTION WIDTH 15.5 % (11.5-15.0); WHITE BLOOD COUNT (AUTO) 7.7 K/uL (4.3-11.0)
[2023-10-06 15:50] VITALS: BP 118/66; TEMP 97.6; O2SAT 95
== END 2023-10-06 15:45 | disposition home or self-care (01) | DRG 699 ==
LOC: ER 08:47 → MED 12:43
PROVIDERS: ADMIT Nurse Practitioner Acute Care; ATTEND Nurse Practitioner Acute Care
DX: N31.9 Neuromuscular dysfunction of bladder, unspecified (principal); E66.2 Morbid (severe) obesity with alveolar hypoventilation; I13.0 Hypertensive heart and chronic kidney disease with heart failure and stage 1 through stage 4 chronic kidney disease, or unspecified chronic kidney disease; I50.22 Chronic systolic (congestive) heart failure; J96.10 Chronic respiratory failure, unspecified whether with hypoxia or hypercapnia; N17.9 Acute kidney failure, unspecified; N18.4 Chronic kidney disease, stage 4 (severe); R33.9 Retention of urine, unspecified; E78.5 Hyperlipidemia, unspecified; R19.01 Right upper quadrant abdominal swelling, mass and lump; E11.22 Type 2 diabetes mellitus with diabetic chronic kidney disease; Z90.49 Acquired absence of other specified parts of digestive tract; Z95.1 Presence of aortocoronary bypass graft; Z95.810 Presence of automatic (implantable) cardiac defibrillator; Z98.890 Other specified postprocedural states; Z79.890 Hormone replacement therapy; Z79.899 Other long term (current) drug therapy; Z79.01 Long term (current) use of anticoagulants; E03.9 Hypothyroidism, unspecified; D63.8 Anemia in other chronic diseases classified elsewhere; E87.5 Hyperkalemia; I25.10 Atherosclerotic heart disease of native coronary artery without angina pectoris; J44.9 Chronic obstructive pulmonary disease, unspecified; M89.8X9 Other specified disorders of bone, unspecified site; I48.0 Paroxysmal atrial fibrillation; I27.20 Pulmonary hypertension, unspecified; K59.00 Constipation, unspecified; Z68.37 Body mass index [BMI] 37.0-37.9, adult; Z79.4 Long term (current) use of insulin; Z82.49 Family history of ischemic heart disease and other diseases of the circulatory system; Z87.01 Personal history of pneumonia (recurrent); Z87.19 Personal history of other diseases of the digestive system; N13.9 Obstructive and reflux uropathy, unspecified
CPT/HCPCS: 36415; 71045-TC; 80048-TC; 80053-TC; 80061-TC; 80076-TC; 81001; 82962-TC; 83540-TC; 83735-TC; 83880; 84100-TC; 84436-TC; 84443-TC; 84481; 84484-TC; 85025-TC; C9113; G0378; J1815; J2270; J7030; J8597